=== PATIENT | female | born 1990 | race Two or more races ===

== ENCOUNTER 2021-02-23 07:40 | Emergency (ER) | payer MEDICAID, SELFPAY ==
--- NOTE | 2021-02-23 07:50 | ED_ITS ---
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 Mode of arrival: ambulatory Limitations: no limitations History of Present Illness chief complaint: eye pain Onset (ago): day(s) (yesterday) Onset description: gradual Duration: progressively worsening Location: right eye Eye Symptoms: pain and other (upper lid swelling) Place: home Mechanism: none Severity: mild If Pain, Quality: aching and throbbing Associated symptoms: none Treatments Prior to Arrival: none Related Data Previous Rx's Medication Instructions Recorded cephalexin 500 mg capsule 500 mg PO TID 7 Days #21 cap 02/23/21 erythromycin 5 mg/gram (0.5 %) eye 0.5 inch OPHTHALMIC (EYE) BID 5 02/23/21 ointment Days #3.5 g Allergies Allergy/AdvReac Type Severity Reaction Status Date / Time No Known Allergies Allergy Unverified 03/21/20 19:23 [No Known Allergies*] Review of Systems Review of Systems: Constitutional : No Fever, No Chills, ENT: R upper eyelid swelling, no vision changes Cardiovascular : No Chest Pain, No SOB Respiratory : No Dyspnea Gastrointestinal : No abdominal pain Musculoskeletal : No Joint Swelling Skin : No rash, no skin laceration Neuro : No Weakness, No Numbness PMFSH Past Medical History Medical History No active medical problems Social History Social History (Updated 02/23/21 @ 08:00 by Ignacia Reyes DO) Patient Tobacco Use Status: Never used Tobacco Advance Directives: No Advance Directives Information Provided: No Physical Exam Vital Signs: Appearance: Alert. Oriented X3. No acute distress. Eyes: Pupils equal, round and reactive to light. Upper lid swelling mild erythema on right, EOMi ENT: Pharynx normal. Neck: Normal inspection. Neck supple. CVS: Normal heart rate and rhythm. Pulses normal. Respiratory: No respiratory distress. Breath sounds normal. Abdomen: Soft and no trauma Skin: Skin warm and dry. Normal skin color. Extremities: No lower extremity edema. Neuro: Oriented X 3. No motor deficit. No sensory deficit. MDM - Eye Problem MDM Narrative Medical decision making narrative: 30 yo female healthy no contact lens wear comes in with R upper lid blepharitis, will provide ointment and oral antiboitics, warm compresses, EOMi no concern for deeper space infection. Discharge Plan Discharge Clinical Impression: Blepharitis Qualifiers: Blepharitis type: unspecified type Laterality: right Eyelid: upper Qualified Code(s): H01.001 - Unspecified blepharitis right upper eyelid Patient Disposition: Home, Self-Care Instructions: Blepharitis (ED) Additional Instructions: return to ED for any worsening symptoms or concerns Prescriptions: New cephalexin 500 mg capsule 500 mg PO TID 7 Days Qty: 21 RF: 0 erythromycin 5 mg/gram (0.5 %) ointment 0.5 inch ophthalmic (eye) BID 5 Days Qty: 3.5 RF: 0 Print Language: Moroccan
[2021-02-23 08:01] VITALS: BP 117/81; PULSE 94; RESP 18; TEMP 36.8; O2SAT 98; BMI 32.9
== END 2021-02-23 08:05 | disposition home or self-care (01) ==
PROVIDERS: Emergency Provider Emergency Medicine; PCP Internal Medicine
DX: H01.001 Unspecified blepharitis right upper eyelid (principal); H57.11 Ocular pain, right eye; Z79.899 Other long term (current) drug therapy
CPT/HCPCS: 99283

== ENCOUNTER 2021-07-03 12:13 | Outpatient (REF) | payer MEDICAID, SELFPAY | END 2021-07-03 12:14 | disposition home or self-care (01) | LOC: HO.LAB 12:13 | PROVIDERS: Visit Provider Internal Medicine | DX: Z13.89 Encounter for screening for other disorder (principal) ==

== ENCOUNTER 2021-07-04 08:26 | Outpatient (REF) | payer MEDICAID, SELFPAY ==
[2021-07-04 09:42] LABS: Binax Now Covid-19 Ag Negative (Negative)
[2021-07-04 09:43] LABS: Binax Internal Control QC Valid; Binax Lot number: 9864
== END 2021-07-04 08:27 | disposition home or self-care (01) ==
LOC: HO.LAB 08:26
PROVIDERS: Visit Provider Internal Medicine
DX: Z20.822 Contact with and (suspected) exposure to COVID-19 (principal)
CPT/HCPCS: 36415; C9803

== ENCOUNTER 2021-08-04 08:00 | Emergency (ER) | payer MEDICAID, SELFPAY ==
--- NOTE | ~2021-08-04 | US_ITS ---
EXAMINATION: US ABDOMEN LIMITED CLINICAL INFORMATION: Right upper quadrant pain and tenderness. Gallbladder wall thickening. COMPARISON: None TECHNIQUE: Real-time imaging of the right upper quadrant abdominal viscera. FINDINGS: PANCREAS: The pancreas is partially obscured by overlying gas. However visualized proximal body and head of pancreas is homogeneous in echotexture. LIVER: The liver is normal in size. The liver contour is normal. Parenchymal echogenicity is normal. No focal hepatic lesion. There is no intrahepatic biliary duct dilatation seen. GALLBLADDER: The gallbladder is physiologically distended with echogenic stones but no sludge or pericholecystic fluid collection. The gallbladder wall thickness is 0.6-0.8 cm. COMMON BILE DUCT: Normal in caliber measuring 0.3 cm in diameter. RIGHT KIDNEY: Normal. No hydronephrosis. No renal calculi or focal parenchymal lesions. The kidney measures 10.1 cm in maximum dimension. FREE FLUID: None. US/US abdomen limited IMPRESSION: Gallstone with mild wall thickening. Unremarkable right kidney, CBD and liver.
--- NOTE | ~2021-08-04 | CT_ITS ---
EXAMINATION: CT ABDOMEN AND PELVIS WITH CONTRAST CLINICAL INFORMATION: Right lower quadrant pain COMPARISON: None TECHNIQUE: Multidetector volumetric images were obtained from the superior aspect of the liver through the pubic symphysis following administration 85 mL of Omnipaque 350 intravenous contrast. Sagittal and coronal reformatted images were obtained on the technologist's workstation. Oral contrast: No This CT examination was performed using dose optimization techniques as appropriate, variously including the following: *Automated exposure control *Adjustment of mA and/or kV according to patient size (this includes techniques or standardized protocols for targeted exams where dose is matched to indication/reason for exam; i.e. extremities or head) *Use of iterative reconstruction technique DLP: 769 mGy-cm FINDINGS: LUNG BASES: The lung bases are clear. The heart size is normal. LIVER, GALLBLADDER, AND BILIARY TREE: The liver is normal in size, shape, and attenuation. No focal hepatic lesion or biliary ductal dilatation is present. The gallbladder is nondistended with mild wall thickening but no radiopaque calculi seen. The common bile duct appears normal caliber. PANCREAS: Unremarkable. SPLEEN: Unremarkable. ADRENAL GLANDS: Unremarkable. KIDNEYS AND URETERS: The kidneys are normal in size, shape, and attenuation. No hydronephrosis, hydroureter, or calculi seen. No perinephric stranding. BLADDER: Unremarkable. GASTROINTESTINAL TRACT: There is scattered stool and gas seen throughout the colon without significant distention. The small bowel loops are normal caliber. Appendix is normal caliber. ABDOMINAL WALL: There is a small umbilical hernia containing fat. LYMPH NODES: Normal. VASCULAR: Unremarkable. PELVIC VISCERA: The uterus is midline and appears unremarkable. No free fluid seen. There are scattered phleboliths in the pelvis. OSSEOUS STRUCTURES: No lytic or sclerotic process seen. CT/CT abdomen pelvis w con IMPRESSION: No acute intra-abdominal process seen. Mild constipation. Normal appendix Small lumbar canal hernia containing fat. Fleischner guidelines were followed.
[2021-08-04 08:03] VITALS: BP 121/87; PULSE 82; RESP 18; TEMP 36.6; O2SAT 100; BMI 32.9
[2021-08-04 08:23] LABS: Hematocrit 36.3 % (37.0-47.0); Hemoglobin 11.7 g/dl (12.0-16.0); Mean Corpuscular HGB Conc 32.2 g/dl (31.0-35.0); Mean Corpuscular Hemoglobin 27.3 pg (27.0-33.0); Mean Corpuscular Volume 84.8 fL (80.0-98.0); Mean Platelet Volume 11.6 fL (9.4-12.3); Platelet Count 241 X10*3/uL (160-400); Red Blood Count 4.28 X10*6/uL (4.20-5.50); Red Cell Distribution Width 12.6 % (11.0-16.0); White Blood Count 4.6 X10*3/uL (4.8-10.8)
[2021-08-04 08:35] VITALS: BP 110/69; PULSE 80; RESP 14; TEMP 36.9; O2SAT 99
[2021-08-04 08:35] LABS: Anion Gap 10 (12-20); Blood Urea Nitrogen 12 mg/dL (9-16); Calcium 9.6 mg/dL (8.4-10.2); Carbon Dioxide 24 mmol/L (22-29); Chloride 108 mmol/L (96-108); Creatinine Clr Calc Pharmacy 100.8; Estimated Glomerular Filt Rate > 60; Glucose Random 101 mg/dL (60-115); Lipase 49 U/L (8-78); Potassium 4.9 mmol/L (3.3-5.1); Sodium 137 mmol/L (135-145)
[2021-08-04 08:39] LABS: COVID-19 Test Negative (Negative)
[2021-08-04 09:03] LABS: Alanine Aminotransferase 28 U/L (0-31); Albumin Level 4.2 g/dL (3.5-5.0); Alkaline Phosphatase 66 U/L (39-117); Aspartate Amino Transferase 25 U/L (5-31); Bilirubin Direct < 0.2 mg/dL (0.0-0.5); Bilirubin Total 0.3 mg/dL (0.0-1.0)
[2021-08-04 09:09] LABS: HCG Quantitative < 2 mIU/mL
--- NOTE | 2021-08-04 09:28 | ED_ITS ---
HPI - Abdominal Pain General Chief Complaint: Abdominal Pain Stated Complaint: Abd pain Time Seen by Provider: 08/04/21 08:10 Source: patient Mode of arrival: ambulatory Limitations: no limitations History of Present Illness HPI narrative: 30-year-old female who presents emergency department for evaluation of abdo damion pain. The patient states that she had sudden onset of abdominal pain on Wednesday morning at around 3:00 a.m. ( 08/02/2021, 3 days prior to evaluation). She states the pain woke her from sleep. She points to her epigastric area when she is asked to localize the pain. The pain has been a constant, sharp pain which does radiate to her back. She states the pain waxes and wanes in intensity. The pain is 10/10 at its worst. The pain is worse if she lies down flat or she eats. she had associated nausea but no vomiting. She states that the pain is now radiating to her right flank area. This is a 1st episode of this type of pain. Her last menstrual period was 1 week prior and she states that only lasted 2 days which is unusual for her and she states the blood was darker than usual. At the time my evaluation she states that her pain is 10/10. Related Data Previous Rx's Medication Instructions Recorded cephalexin 500 mg capsule 500 mg PO TID 7 Days #21 cap 02/23/21 erythromycin 5 mg/gram (0.5 %) eye 0.5 inch OPHTHALMIC (EYE) BID 5 02/23/21 ointment Days #3.5 g morphine 15 mg immediate release 15 mg PO Q4-6H PRN #10 tab 08/04/21 tablet omeprazole 20 mg capsule,delayed 20 mg PO DAILY 30 Days #30 cap 08/04/21 release ondansetron 4 mg disintegrating 4 mg PO Q6-8H PRN #14 tab 08/04/21 tablet Allergies Allergy/AdvReac Type Severity Reaction Status Date / Time No Known Allergies Allergy Unverified 03/21/20 19:23 [No Known Allergies*] Review of Systems Review of Systems Yes all other systems are reviewed and are negative Physical Exam Verdana 4l Vital Signs: Verdana 4d Verdana 4d Vital Signs: Verdana 4d Verdana 4Bd Last Vital Signs Verdana 4d Behavioral Scientist New 4d Behavioral Scientist New 4d Temp 98.3 F 08/04/21 10:54 Behavioral Scientist New 4d Pulse 73 08/04/21 10:54 Behavioral Scientist New 4d Resp 16 08/04/21 10:54 BP 124/81 08/04/21 10:54 Pulse Ox 100 08/04/21 10:54 BMI result Body Mass Index 32.9 Const: General: cooperative and no acute distress Orientation/consciousness: oriented to person and oriented to place Limitations: no limitations HENMT: Head: Yes normal to inspection, Yes normocephalic and Yes atraumatic Ears: external ears normal General nose exam: Normal external nose present Face and sinus: Yes normal facial exam Mouth: Normal oral and palatal mucosa present Throat: Yes posterior oropharynx normal Eyes: General: appearance normal, both eyes and all related structures Pupils: Equal, round and reactive pupils present Neck: Neck: Yes normal visual inspection, Yes no lymphadenopathy, Yes trachea midline and Yes supple Chest: Chest palpation & inspection: normal inspection of the chest and normal palpation of entire chest wall Resp: Effort & Inspection: normal respiratory effort and able to speak in complete sentences Auscultation: clear to auscultation bilaterally Cardio: Rate: regular rate Rhythm: regular rhythm Heart sounds: S1 normal heart sound present, S2 normal heart sound present and no murmurs GI: Inspection: Yes normal to inspection Palpation (GI): Soft to palpation, Tenderness to palpation present (GI) in the epigastrum ( mild), in the RLQ ( moderate), in the RUQ ( moderate to severe), suprapubicly ( mild) and Holloway's sign positive and no guarding Auscultation: normal bowel sounds : General: Yes no CVA tenderness Back/Spine/Pelvis: Back: no CVA tenderness Skin: General skin exam: no rashes or lesions noted Neuro: General: oriented to person and oriented to place Cranial nerves: Yes CN's II-XII intact bilaterally and Yes Equal, round and reactive pupils present Cognition (Neuro): normal cognition Motor exam (neuro): 5/5 motor strength present throughout Extrem: General: Yes normal to inspection Psych: Appearance: grossly normal Speech and movement: Normal speech and movement present Affect: normal affect Attitude: cooperative Thought process: Normal thought process present Thought content: Normal thought content present Course Course Course Narrative: 30-year-old female who presents emergency department for evaluation of abdominal pain which began suddenly at 3:00 a.m. 3 days prior, has been constant but waxing waning in intensity. The pain was initially located in the epigastric area Radiating to the back and is now migrated to the right upper quadrant and right flank. pain is worse with lying down flat and with eating. Initial vital signs were normal. Examination did reveal epigastric, right upper quadrant, right lower quadrant and suprapubic tenderness. Patient does have a positive Holloway sign. Differential includes but is not limited to gastritis, biliary disease/gallstones, pancreatitis, appendicitis, diverticulitis. Laboratory evaluation was ordered. Patient was ordered to get Toradol 15 mg IV and Zofran 4 mg IV. She was also given a L of normal saline IV. 1139: The patient's pain improved from 10/10 to 6/10. Her nausea resolved. She still has right upper quadrant tenderness as well as lower abdominal tenderness. Patient's laboratory evaluation was unremarkable Including normal LFTs, lipase and urinalysis. CT scan of the abdomen pelvis not reveal any inflammatory changes around the liver, No distended gallbladder and the common bile duct looks normal. There was mild thickening of the gallbladder wall. I will order ultrasound to further evaluate the patient for gallstones versus cholecystitis. patient will also be given morphine 4 mg IV for her pain. 1406: Patient improved after the above treatment. Ultrasound did reveal mild gallbladder wall thickening with gallstones. I did discuss this finding with the patient. The patient will be discharged home with printed and verbal instructions. She was started on Prilosec 20 mg once a day, Zofran ODT 4 mg every 6-8 hours, Tylenol, ibuprofen and morphine for pain not relieved by these 2 medications. The patient will need to follow-up with our on-call surgeon for re-evaluation within 1 week. MDM - Abdominal Pain Lab Data Result diagrams: 08/04/21 08:15 08/04/21 08:15 Labs: Lab Results 08/04/21 08/04/21 08/04/21 Range/Units 08:15 08:15 08:15 WBC 4.6 L (4.8-10.8) X10*3/uL RBC 4.28 (4.20-5.50) X10*6/uL Hgb 11.7 L (12.0-16.0) g/dl Hct 36.3 L (37.0-47.0) % MCV 84.8 (80.0-98.0) fL MCH 27.3 (27.0-33.0) pg MCHC 32.2 (31.0-35.0) g/dl RDW 12.6 (11.0-16.0) % Plt Count 241 (160-400) X10*3/uL MPV 11.6 (9.4-12.3) fL Absolute Nucleated RBC 0.000 (0.0-0.012) X10*3/uL Nucleated RBC % (auto) 0.0 (0.0-0.2) /100WBC Sodium 137 (135-145) mmol/L Potassium 4.9 (3.3-5.1) mmol/L Chloride 108 (96-108) mmol/L Carbon Dioxide 24 (22-29) mmol/L Anion Gap 10 L (12-20) BUN 12 (9-16) mg/dL Creatinine 0.80 (0.5-1.4) mg/dL Estim Creat Clear Calc 100.8 Estimated GFR > 60 Random Glucose 101 (60-115) mg/dL Calcium 9.6 (8.4-10.2) mg/dL Total Bilirubin 0.3 (0.0-1.0) mg/dL Direct Bilirubin < 0.2 (0.0-0.5) mg/dL AST 25 (5-31) U/L ALT 28 (0-31) U/L Alkaline Phosphatase 66 (39-117) U/L Total Protein 7.0 (6.5-8.0) g/dL Albumin 4.2 (3.5-5.0) g/dL Lipase 49 (8-78) U/L Beta HCG, Quant < 2 mIU/mL Urine Color Urine Appearance Urine pH (5.0-8.0) Ur Specific Fenton (1.005-1.025) Urine Protein (NEG-TRACE) MG/DL Urine Glucose (UA) (NEG) MG/DL Urine Ketones (NEG) MG/DL Urine Blood (NEG) Urine Nitrite (NEG) Ur Leukocyte Esterase (NEG) Urine RBC (0) /HPF Urine WBC (0-4) /HPF Ur Squamous Epith Cells /LPF Urine Bacteria /LPF COVID-19 ([facility]) Negative (Negative) COVID-19 Clin Com See Note 01/31/22 Range/Units 11:05 WBC (4.8-10.8) X10*3/uL RBC (4.20-5.50) X10*6/uL Hgb (12.0-16.0) g/dl Hct (37.0-47.0) % MCV (80.0-98.0) fL MCH (27.0-33.0) pg MCHC (31.0-35.0) g/dl RDW (11.0-16.0) % Plt Count (160-400) X10*3/uL MPV (9.4-12.3) fL Absolute Nucleated RBC (0.0-0.012) X10*3/uL Nucleated RBC % (auto) (0.0-0.2) /100WBC Sodium (135-145) mmol/L Potassium (3.3-5.1) mmol/L Chloride (96-108) mmol/L Carbon Dioxide (22-29) mmol/L Anion Gap (12-20) BUN (9-16) mg/dL Creatinine (0.5-1.4) mg/dL Estim Creat Clear Calc Estimated GFR Random Glucose (60-115) mg/dL Calcium (8.4-10.2) mg/dL Total Bilirubin (0.0-1.0) mg/dL Direct Bilirubin (0.0-0.5) mg/dL AST (5-31) U/L ALT (0-31) U/L Alkaline Phosphatase (39-117) U/L Total Protein (6.5-8.0) g/dL Albumin (3.5-5.0) g/dL Lipase (8-78) U/L Beta HCG, Quant mIU/mL Urine Color STRAW Urine Appearance CLEAR Urine pH 5.5 (5.0-8.0) Ur Specific Fenton 1.020 (1.005-1.025) Urine Protein NEG (NEG-TRACE) MG/DL Urine Glucose (UA) NEG (NEG) MG/DL Urine Ketones NEG (NEG) MG/DL Urine Blood 2+ H (NEG) Urine Nitrite NEG (NEG) Ur Leukocyte Esterase NEG (NEG) Urine RBC 5-9 H (0) /HPF Urine WBC 0 (0-4) /HPF Ur Squamous Epith Cells 4+ /LPF Urine Bacteria 1+ /LPF COVID-19 ([facility]) (Negative) COVID-19 Clin Com ECG Data Attestation: I personally reviewed and interpreted this ECG as follows: Interpretation: 1032: Normal sinus rhythm with a rate of 72, normal NC interval QRS duration QTC interval, inverted T-wave in lead 3 and V1, Q-wave in V1, no ST segment elevation, no ST segment depression, no NC interval depression, no PACs, no PVCs, this is a normal EKG. Discharge Plan Discharge Clinical Impression: Biliary colic, Gallstone Patient Disposition: Home, Self-Care Instructions: Biliary Colic (ED), Gallstones (ED), Low Fat Diet (ED) Additional Instructions: Your blood work was unremarkable. The CT scan of your abdomen pelvis reveals some mild thickening of the gallbladder wall, otherwise was unremarkable. Ultrasound of your abdomen revealed gallstones and some slight thickening of the gallbladder wall suggesting that you have inflammation of the gallbladder most likely caused by your gallstones. You will need to follow-up with the on-call surgeon to determine if the gallstones with the cause of your pain and if you need surgery to remove your gallbladder. Take ibuprofen 200 mg pills, 3 pills every 6 hours as needed for pain. Take Tylenol (acetaminophen) 500 mg pills, 2 pills every 4-6 hours as needed for pain. For pain not relieved by ibuprofen or Tylenol take morphine 15 mg pills, 1 pill every 4 hours as needed for pain. Do not drive or work while taking this medication since they can cause sleepiness. Morphine is a narcotic medication that can be addicting. If you are concerned about addiction you can ask the pharmacist for less pills or do not get this prescription filled. Take Zofran ODT 4 mg pills, 1 pill dissolved in your mouth every 8 hours as needed for nausea and vomiting. Take Prilosec (omeprazole) 20 mg pills, 1 pill once a day for 1 month. This medication shuts off your acid production and let us the inflammation in your esophagus and stomach heal if inflammation of the structures is the cause of your pain. Follow-up with our on-call general surgeon, Dr. Anaya. Please return to the emergency department if your symptoms get worse or if you develop any symptoms that are concerning to you. Prescriptions: New omeprazole 20 mg capsule,delayed release(DR/EC) 20 mg PO DAILY 30 Days Qty: 30 0RF morphine 15 mg tablet 15 mg PO Q4-6H PRN (Reason: pain) Qty: 10 0RF Rx Instructions: The patient may ask for partial fill ondansetron 4 mg tablet,disintegrating 4 mg PO Q6-8H PRN (Reason: nausea and vomiting) Qty: 14 0RF No Action cephalexin 500 mg capsule 500 mg PO TID 7 Days Qty: 21 0RF erythromycin 5 mg/gram (0.5 %) ointment 0.5 inch ophthalmic (eye) BID 5 Days Qty: 3.5 0RF Referrals: Andrey Anaya MD [Physician] - 1 week Print Language: Tuvaluan [facility] Past Medical History [facility] Narrative: Past medical history: None. Past surgical history: x2 with the last surgery being 13 years prior. Social history: She denies tobacco, alcohol and drug use. Medical History No active medical problems Social History Social History (Updated 02/23/21 @ 08:00 by Ignacia Reyes DO) Alcohol intake: never Patient Tobacco Use Status: Never used Tobacco Use of substances other than those prescribed or required for medical reasons: No Advance Directives: No Advance Directives Information Provided: No Patient : No
--- NOTE | 2021-08-04 09:30 | ECG_ITS ---
Test Reason : ABDOMEN PAIN Blood Pressure : / mmHG Vent. Rate : 072 BPM Atrial Rate : 072 BPM P-R Int : 160 ms QRS Dur : 082 ms QT Int : 388 ms P-R-T Axes : 046 -08 007 degrees QTc Int : 424 ms Normal sinus rhythm Normal ECG No previous ECGs available Referred By: Paulino Flannery Electronically Signed By:JOSE PERERA
[2021-08-04] MEDS: iohexoL 350 MG/ML 100 ML INFUS..BTL IV (10:34)
[2021-08-04 10:54] VITALS: BP 124/81; PULSE 73; RESP 16; TEMP 36.8; O2SAT 100
[2021-08-04] MEDS: 0.9 % Sodium Chloride 1,000 ML 999 ML IV (10:59)
[2021-08-04] MEDS: ondansetron HCL 4 MG/2 ML VIAL IVPUSH (11:01)
[2021-08-04] MEDS: Ketorolac Tromethamine 30 MG/ML VIAL 15 MG IVPUSH (11:01)
[2021-08-04 11:15] LABS: Appearance Urine CLEAR; Color Urine STRAW; Glucose Urine UA NEG (NEG); Leukocyte Esterase Urine NEG (NEG); Nitrite Urine NEG (NEG); PH 5.5 (5.0-8.0); UACC Culture Trigger NO; Urine Blood 2+ (NEG); Urine Ketones NEG (NEG); Urine Protein NEG (NEG-TRACE)
[2021-08-04 11:52] LABS: Bacteria Urine 1+ /LPF; Squamous Epithelial Cell Urine 4+ /LPF; WBC Urine 0 /HPF (0-4)
[2021-08-04] MEDS: Morphine Sulfate 4 MG/ML CARTRIDGE IVPUSH (11:59)
[2021-08-04 14:34] VITALS: BP 120/84; PULSE 86; RESP 17; O2SAT 100
== END 2021-08-04 14:45 | disposition home or self-care (01) ==
PROVIDERS: Emergency Provider Emergency Medicine Emergency Medical Services; PCP Internal Medicine
DX: K80.70 Calculus of gallbladder and bile duct without cholecystitis without obstruction (principal); Z20.822 Contact with and (suspected) exposure to COVID-19; R11.0 Nausea
CPT/HCPCS: 74177; 76705; 80048; 80076; 81001; 83690; 84702; 85027; 87635; 93005; 96361; 96374; 96375; 99284; 99285; J1885; J2270; J2405; Q9967

== ENCOUNTER → 2021-08-06 08:18 | Outpatient (BNVA) | payer MEDICAID, SELFPAY | PROVIDERS: PCP Internal Medicine; Referring Provider Internal Medicine; Visit Provider Surgery | DX: K80.20 Calculus of gallbladder without cholecystitis without obstruction (principal) | CPT/HCPCS: 99202 ==

== ENCOUNTER 2021-08-15 10:30 | Day surgery (SDC) | payer MEDICAID, SELFPAY ==
--- NOTE | 2021-08-14 10:21 | HO.ANESPROP2 ---
Documented by User: Aura Barragan NP 08/14/21 10:22 HPI - Anesthesia Eval Consult details Narrative: 30yo F for Cholecystectomy Laparoscopic PMFSH Active Problems Active Problems: All Active Problems (Updated 08/06/21 @ 09:11 by Andrey Anaya MD) Gallstones (Acute) Past Medical History Medical History (Updated 08/06/21 @ 09:11 by Andrey Anaya MD) Gallstones No active medical problems Surgical History Surgical History (Updated 08/15/21 @ 10:50 by Rhiannon Almaraz) History of 2 sections Tubal ligation status Social History Social History Alcohol intake: never Patient Tobacco Use Status: Never used Tobacco Use of substances other than those prescribed or required for medical reasons: No Are you DNR?: No Advance Directives: No Advance Directives Information Provided: Yes Meds Allergies Allergy/AdvReac Type Severity Reaction Status Date / Time No Known Allergies Allergy Verified 08/15/21 10:49 [No Known Allergies*] Home Medications Medication Instructions Recorded Confirmed Last Taken Type ibuprofen 800 mg tablet 800 mg PO Q6H PRN 08/06/21 08/06/21 08/13/21 History Exam Exam Date and Time: August 14, 2021 102 Pertinent Lab Results Pertinent Lab Results: Laboratory Tests 08/04/21 08/04/21 08:15 08:15 WBC 4.6 L Hgb 11.7 L Hct 36.3 L Plt Count 241 Sodium 137 Potassium 4.9 Chloride 108 Carbon Dioxide 24 BUN 12 Creatinine 0.80 Assessment and Plan Assessment Anesthesia Assessment: Chart Reviewed Documented by User: Dafne Dangelo MD 08/15/21 13:46 PMFSH Past Medical History Medical History (Updated 08/06/21 @ 09:11 by Andrey Anaya MD) Gallstones No active medical problems Family History Family history of problems with anesthesia: No Surgical History Surgical History (Updated 08/15/21 @ 10:50 by Rhiannon Almaraz) History of 2 sections Tubal ligation status History of Problems with Anesthesia: No Social History Social History Alcohol intake: never Patient Tobacco Use Status: Never used Tobacco Use of substances other than those prescribed or required for medical reasons: No Are you DNR?: No Advance Directives: No Advance Directives Information Provided: Yes Meds Allergies Allergy/AdvReac Type Severity Reaction Status Date / Time No Known Allergies Allergy Verified 08/15/21 10:49 [No Known Allergies*] Home Medications Medication Instructions Recorded Confirmed Last Taken Type ibuprofen 800 mg tablet 800 mg PO Q6H PRN 08/06/21 08/06/21 08/13/21 History Exam Airway Mallampati Class: II TM Dist: >3cm Neck ROM: Full Heart: rrr Lungs: cta Assessment and Plan Assessment Anesthesia Assessment: Anesthesia Plan Discussed and Chart Reviewed Final Anesthetic Review Family History of Problems with Anesthesia: No History of Problems with Anesthesia: No NPO: Yes ASA Class: I Final Preanesthetic Review: No Changes in Pt Med Stat, Meds/Allgs Chart Reviewed and Consent Obtained/Reviewed Patient Risk: Intermediate Procedure Risk: Intermediate Anesthetic Plan Anesthetic Plan: GA Disposition: Standard PACU
[2021-08-15] VITALS (14 sets, daily range): BP systolic 98–139; BP diastolic 51–81; PULSE 64–96; RESP 10–18; TEMP 36.3–36.9; O2SAT 96–100; BMI 32.7
[2021-08-15] MEDS: Acetaminophen 325 MG TABLET 650 MG PO (11:14)
[2021-08-15] MEDS: Lactated Ringers 1,000 ML 100 ML IVCONT (11:20)
--- NOTE | 2021-08-15 15:06 | P.OP_ITS ---
Operative Note Operative Note Date of Service: 08/15/21 Narrative: Preop diagnosis: Symptomatic gallstones Postop diagnosis: The same Procedure: Laparoscopic cholecystectomy Surgeon: Andrey Anaya MD business banking sales assistant: XAVIER Melgar The patient is a 30 year female who has had periodic right upper quadrant pain, with note of gallstones on ultrasound and CAT scan. She therefore wanted to proceed with cholecystectomy in view of her symptoms. She understood the technique of laparoscopic cholecystectomy and possible open. She was aware of the risks, benefits, and alternatives. She was brought to the operating room placed supine the table under general anesthesia via endotracheal tube. The abdomen is prepped draped usual sterile fashion. A surgical time-out was done. The patient received Cefotan 2 g IV preoperatively . I made a short supraumbilical incision using blade 15. This was carried down Through the full-thickness skin subcutaneous fat down to the fascia. The fascia was incised. The peritoneum was entered. Through this incision a Nile port introduced. Pneumoperitoneum was introduced to a pressure of 15 minutes hg. From here on the rest of the procedures done under vision with the laparoscopic. With laparoscopic visualization, I proceeded to then insert a 5/12 mm port in the epigastric area below the subcostal margin. 5 mm port introduced a small incision below the subcostal margin along the internal and the midclavicular carlos e. Graspers were placed through these working ports. The patient was placed in head-up and [id number] position. The gallbladder was seen and was able to apply a grasper the fundus. The gallbladder was retracted cephalad. This did not appear inflamed. I was able to apply another grasper towards the parts of the gallbladder and this was used to retract the gallbladder laterally. At this point therefore the gallbladder was being retracted in a cephalad and L fashion to put the area of the cystic duct on stretch. We carefully dissected the neck of the gallbladder towards the cystic duct using the [place] dissector and until was able to clearly influence of the cystic duct with the neck of the gallbladder. By doing so were able to achieve a critical view of the patent cystic triangle. I was also able to clearly see the cystic artery. With the cystic duct well defined, proceeded to apply clips with 2 clips along distally and the cystic duct was transected between clips with Endo scissors. Clips were applied on the cystic artery as well with 2 clips applied distally and the cystic artery was transected between clips. with traction the gallbladder wall away from the liver bed, I proceeded to then divide across the hilum with electrocautery spatula and incised the peritoneum of the gallbladder with this spatula. I then proceeded to carefully define a plane of dissection between the gallbladder wall the liver bed along this incision, carefully the gallbladder along this well-defined plane. We continued to separate the gallbladder using a combination of electrocautery as well as blunt dissection with the tip of the spatula. The gallbladder was eventually completely and was retrieved through an endobag through the umbilical incision I reinserted all ports and re-insufflated. Examined the subhepatic space. There was no evidence of any bile leak or any bowel injury. There is any no evidence of any bleeding I observed for 4 quadrants and there was no other pathology seen. Once hemostasis was confirmed, I proceeded to desufflate through the port sites. I then proceeded to remove all ports under vision with laparoscopic. The umbilical port was removed last. The fascia of the umbilical incision was closed with [id number] Dexon 0 stitch. Skin closure was achieved on all incisions using Dexon 4-0 subcuticular sutures. Steri-Strips and dressings were applied . The patient tolerated the procedure well. There were no complications noted. Initial fine counts of sponges and instruments were correct. Estimated blood loss was about 20 cc . The patient was extubated without difficulty and transferred to the recovery room with stable vital signs.
[2021-08-15] MEDS: fentaNYL citrate/PF 100 MCG/2 ML VIAL 50 MCG IVPUSH ×4 (15:15→15:45)
[2021-08-15] MEDS: oxyCODONE HCl Immed Release 5 MG TABLET PO ×2 (15:15→16:55)
[2021-08-15] MEDS: HYDROmorphone HCl 0.5 MG/0.5 ML SYRINGE 0.25 MG IVPUSH ×2 (16:55→17:00)
== END 2021-08-15 17:49 | disposition home or self-care (01) ==
PROVIDERS: PCP Internal Medicine; Visit Provider Surgery
PROC: 0FT44ZZ Resection of Gallbladder, Percutaneous Endoscopic Approach (ICD-10-PCS; CPT 47562; principal; 2021-08-15 12:20)
DX: K80.10 Calculus of gallbladder with chronic cholecystitis without obstruction (principal); Z79.899 Other long term (current) drug therapy
CPT/HCPCS: 47562; 88304; J1100; J1170; J2250; J2405; J3010

== ENCOUNTER → 2021-08-28 09:14 | Outpatient (BNVA) | payer MEDICAID, SELFPAY | PROVIDERS: PCP Internal Medicine; Referring Provider Internal Medicine; Visit Provider Surgery | DX: Z09 Encounter for follow-up examination after completed treatment for conditions other than malignant neoplasm (principal); Z87.19 Personal history of other diseases of the digestive system; Z90.49 Acquired absence of other specified parts of digestive tract | CPT/HCPCS: 99212 ==

== ENCOUNTER 2022-01-23 05:57 | Emergency (ER) | payer MEDICAID, SELFPAY ==
--- NOTE | ~2022-01-23 | CT_ITS ---
EXAMINATION: CT ABDOMEN AND PELVIS WITHOUT CONTRAST CLINICAL INFORMATION: Right flank pain. Right lower quadrant pain. Rule out stone COMPARISON: 08/04/2021. TECHNIQUE: Multidetector volumetric imaging was performed from the superior aspect of the liver through the pubic symphysis. Sagittal and coronal reformatted images were obtained on the technologist's workstation. This CT examination was performed using dose optimization techniques as appropriate, variously including the following: *Automated exposure control *Adjustment of mA and/or kV according to patient size (this includes techniques or standardized protocols for targeted exams where dose is matched to indication/reason for exam; i.e. extremities or head) *Use of iterative reconstruction technique DLP: 603 mGy-cm FINDINGS: LUNG BASES: The visualized lung bases are unremarkable. LIVER, GALLBLADDER, AND BILIARY TREE: The liver is normal in size, shape, and attenuation. No focal hepatic lesion or biliary ductal dilatation is present. Status post cholecystectomy. PANCREAS: Unremarkable. SPLEEN: Unremarkable. ADRENAL GLANDS: Unremarkable. KIDNEYS AND URETERS: The kidneys are normal in size, shape, and attenuation. No hydronephrosis, hydroureter, or calculi seen. No perinephric stranding. BLADDER: Unremarkable. GASTROINTESTINAL TRACT: The small and large bowel are unremarkable. The appendix is unremarkable. ABDOMINAL WALL: No significant hernia is appreciated. LYMPH NODES: Normal. VASCULAR: Unremarkable. PELVIC VISCERA: Uterus is diffusely prominent. No discrete leiomyomata seen however. No adnexal mass. OSSEOUS STRUCTURES: Unremarkable. CT/CT abdomen pelvis wo con IMPRESSION: No acute CT findings. Fleischner guidelines were followed.
[2022-01-23 06:21] VITALS: BP 117/77; PULSE 80; RESP 18; TEMP 37.1; O2SAT 99; BMI 33.0
[2022-01-23 08:39] LABS: Appearance Urine HAZY; Color Urine STRAW; Glucose Urine UA NEG (NEG); Leukocyte Esterase Urine NEG (NEG); Nitrite Urine NEG (NEG); PH 5.5 (5.0-8.0); Urine Blood NEG (NEG); Urine Ketones NEG (NEG); Urine Protein NEG (NEG-TRACE)
[2022-01-23 08:40] LABS: UPreg QC Valid YES; Urine Pregnancy NEGATIVE (NEGATIVE)
[2022-01-23 08:42] LABS: MANUAL DIFF FLAG NO
[2022-01-23 08:43] LABS: Basophils Percent Auto 0.5 % (0-2); Eosinophils Percent Auto 0.7 % (0-4); Hematocrit 40.3 % (37.0-47.0); Imm Gran Abs Auto 0.01 X10*3/uL (0.00-0.03); Imm Gran Pct Auto 0.2 % (0.0-0.4); Lymphocytes Absolute Auto 1.8 X10*3/uL (1.2-4.9); Lymphocytes Percent Auto 29.4 % (20-40); Mean Corpuscular HGB Conc 32.3 g/dl (31.0-35.0); Mean Corpuscular Volume 83.8 fL (80.0-98.0); Mean Platelet Volume 11.6 fL (9.4-12.3); Monocytes Absolute Auto 0.3 X10*3/uL (0.1-1.2); Monocytes Percent Auto 5.3 % (2-11); Neutrophils Absolute Auto 3.8 x10*3/uL (2.0-8.3); Neutrophils Percent Auto 63.9 % (45-73); Platelet Count 273 X10*3/uL (160-400); Red Blood Count 4.81 X10*6/uL (4.20-5.50)
[2022-01-23] MEDS: 0.9 % Sodium Chloride 1,000 ML 999 ML IV (08:44)
[2022-01-23] MEDS: Ketorolac Tromethamine 15 MG/ML VIAL IVPUSH (08:44)
[2022-01-23] MEDS: ondansetron HCL 4 MG/2 ML VIAL IVPUSH (08:44)
[2022-01-23 09:00] LABS: Alanine Aminotransferase 30 U/L (0-31); Albumin Level 4.8 g/dL (3.5-5.0); Alkaline Phosphatase 81 U/L (39-117); Anion Gap 11 (12-20); Aspartate Amino Transferase 27 U/L (5-31); Bilirubin Total 0.4 mg/dL (0.0-1.0); Blood Urea Nitrogen 10 mg/dL (9-16); Calcium 9.5 mg/dL (8.4-10.2); Carbon Dioxide 25 mmol/L (22-29); Chloride 105 mmol/L (96-108); Creatinine Clr Calc Pharmacy 101.3; Estimated Glomerular Filt Rate > 60; Glucose Random 88 mg/dL (60-115); Lipase 45 U/L (8-78); Potassium 3.9 mmol/L (3.3-5.1); Sodium 137 mmol/L (135-145); Total Protein 7.8 g/dL (6.5-8.0)
--- NOTE | 2022-01-23 11:29 | ED.BACK ---
HPI - Back Pain/Injury General Chief Complaint: Back Pain/Injury Stated Complaint: back and rib pain Time Seen by Provider: 01/23/22 07:25 Source: patient Mode of arrival: ambulatory Limitations: no limitations History of Present Illness HPI Narrative: 31-year-old female who presents emergency department for evaluation of right-sided back pain which radiates to her right abdomen. Patient states that she has been having lower back pain on off for approximately 1 week. She states that the pain was mild. She did not have any injury. She states this morning at 01:00 hours she woke up with severe pain in her right lower back. The pain did radiate to her right lower abdomen. Her pain is now a twisting like sensation which is constant but waxes and wanes in intensity. She states the pain is 10/10 at its worst. The patient took Advil dual action (ibuprofen/naproxen) without relief her pain. She states the pain does radiate her right lower abdomen was pain feels like a twisting sensation as well. She states she does have pain in her left thigh but no pain that radiates down her right leg. She has had no numbness or weakness. She denies loss of bowel or bladder control. The patient denied fever, chills, rhinorrhea, sore throat, cough, chest pain. She states she has had some occasional shortness of breath and dyspnea on exertion. She has also noted some dysuria. She denied change in bowel movements. MD elicited complaint: back pain Onset (ago): week(s) (1) Timing: constant Severity: severe Pain scale (0-10): 10 Similar Symptoms Previously: Yes Quality: other (Twisting) Location: lumbar spine Radiation: abdomen (RLQ) Exacerbating factors: movement Relieving factors: none Context: other (No trauma) Associated symptoms: dysuria Work related injury: No Related Data Home Medications Medication Instructions Recorded Confirmed ibuprofen 800 mg tablet 800 mg PO Q6H PRN Pain 08/06/21 08/06/21 Previous Rx's Medication Instructions Recorded morphine 15 mg immediate release 15 mg PO Q4-6H PRN pain #10 tabs 08/04/21 tablet omeprazole 20 mg capsule,delayed 20 mg PO DAILY 30 days #30 caps 08/04/21 release ondansetron 4 mg disintegrating 4 mg PO Q6-8H PRN nausea and 08/04/21 tablet vomiting #14 tabs oxycodone-acetaminophen 5 mg-325 1 tab PO Q4-6H PRN pain, severe 08/15/21 mg tablet (Percocet) #30 tabs cyclobenzaprine 10 mg tablet 10 mg PO TID PRN pain, muscle 01/23/22 spasm #15 tabs Allergies Allergy/AdvReac Type Severity Reaction Status Date / Time No Known Allergies Allergy Verified 01/23/22 06:21 [No Known Allergies*] Review of Systems Review of Systems: Yes all other systems are reviewed and are negative [facility] Past Medical History [facility] Narrative: Social history: She denies tobacco, alcohol and drug use. Medical History Gallstones No active medical problems Surgical History History of 2 sections History of laparoscopic cholecystectomy Tubal ligation status Social History Social History Alcohol intake: never Patient Tobacco Use Status: Never used Tobacco Advance Directives: No Physical Exam Vital Signs: Vital Signs: Last Vital Signs Temp 98.7 F 01/23/22 06:21 Pulse 80 01/23/22 06:21 Resp 18 01/23/22 06:21 BP 117/77 01/23/22 06:21 Pulse Ox 99 01/23/22 06:21 O2 Del Method 01/23/22 06:21 BMI result Body Mass Index 33.0 Const: General: cooperative and no acute distress Orientation/consciousness: oriented to person and oriented to place Limitations: no limitations HEENT: Head: Yes normal to inspection, Yes normocephalic and Yes atraumatic Ears: external ears normal General nose exam: Normal external nose present Face and sinus: Yes normal facial exam Mouth: Normal oral and palatal mucosa present Throat: Yes posterior oropharynx normal Eyes: General: appearance normal, both eyes and all related structures Pupils: Equal, round and reactive pupils present Neck: Neck: Yes normal visual inspection, Yes no lymphadenopathy, Yes trachea midline and Yes supple Chest: Chest palpation & inspection: normal inspection of the chest and normal palpation of entire chest wall Resp: Effort & Inspection: normal respiratory effort and able to speak in complete sentences Auscultation: clear to auscultation bilaterally Cardio: Rate: regular rate Rhythm: regular rhythm Heart sounds: S1 normal heart sound present, S2 normal heart sound present and no murmurs GI: Inspection: Yes normal to inspection Palpation (GI): Soft to palpation, Tenderness to palpation present (GI) in the RLQ (Moderate) and in the RUQ (Moderate) and no guarding Auscultation: normal bowel sounds : General: Yes CVA tenderness bilateral (Mild) Back/Spine/Pelvis: Back: CVA tenderness Thoracic/Lumbar Spine: lumbar spinal tenderness (Right greater than left) at L3, at L4 and at L5 and No straight leg raise positive Skin: General skin exam: no rashes or lesions noted Neuro: General: oriented to person and oriented to place Cranial nerves: Yes CN's II-XII intact bilaterally and Yes Equal, round and reactive pupils present Cognition (Neuro): normal cognition Motor exam (neuro): 5/5 motor strength present throughout Extrem: General: Yes normal to inspection Psych: Appearance: grossly normal Speech and movement: Normal speech and movement present Affect: normal affect Attitude: cooperative Thought process: Normal thought process present Thought content: Normal thought content present Course Course Course Narrative: 31-year-old female who presents emergency department for evaluation of mild lower back pain x1 week with increased pain at 01:00 hours. Pain is complaining of right lower back pain which radiates to her right abdomen. Pain was 10/10. Vital signs were normal. Physical examination did reveal bilateral CVA tenderness, right lumbar paraspinal muscle tenderness greater than left, negative straight leg raise bilaterally, both right upper and right lower quadrant tenderness. Differential includes was not limited to lumbar strain, pancreatitis, urinary tract infection, renal colic. Laboratory evaluation was ordered CT scan of the abdomen pelvis with IV contrast was also ordered. Patient was ordered to get Toradol 15 mg IV , Versed 2 mg IV and Zofran 4 mg IV. Patient was also treated with normal saline x1 L 1100: Patient is feeling better the above treatment patient's CBC, CMP and urinalysis were unremarkable. Urine test was negative your like his was not elevated. CT scan of the abdomen pelvis did not reveal a clear cause for pain. Patient's pain is most likely secondary to lumbar musculoskeletal strain with spasm. Patient was given printed and verbal instructions. She was advised to take her Advil dual action, acetaminophen and was prescribed cyclobenzaprine. MDM - Back Pain/Injury Lab Data Result diagrams: 01/23/22 08:37 01/23/22 08:37 Labs: Lab Results 01/23/22 01/23/22 01/23/22 Range/Units 08:26 08:26 08:37 WBC 6.0 (4.8-10.8) X10*3/uL RBC 4.81 (4.20-5.50) X10*6/uL Hgb 13.0 (12.0-16.0) g/dl Hct 40.3 (37.0-47.0) % MCV 83.8 (80.0-98.0) fL MCH 27.0 (27.0-33.0) pg MCHC 32.3 (31.0-35.0) g/dl RDW 13.0 (11.0-16.0) % Plt Count 273 (160-400) X10*3/uL MPV 11.6 (9.4-12.3) fL Immature Gran % (Auto) 0.2 (0.0-0.4) % Neut % (Auto) 63.9 (45-73) % Lymph % (Auto) 29.4 (20-40) % [place] % (Auto) 5.3 (2-11) % Eos % (Auto) 0.7 (0-4) % Baso % (Auto) 0.5 (0-2) % Lymph # (Auto) 1.8 (1.2-4.9) X10*3/uL [place] # (Auto) 0.3 (0.1-1.2) X10*3/uL Eos # (Auto) 0.0 (0.0-0.4) X10*3/uL Baso # (Auto) 0.0 (0.0-0.2) X10*3/uL Abs Immat Gran (auto) 0.01 (0.00-0.03) X10*3/uL Absolute Neuts (auto) 3.8 (2.0-8.3) x10*3/uL Absolute Nucleated RBC 0.000 (0.0-0.012) X10*3/uL Nucleated RBC % (auto) 0.0 (0.0-0.2) /100WBC Sodium (135-145) mmol/L Potassium (3.3-5.1) mmol/L Chloride (96-108) mmol/L Carbon Dioxide (22-29) mmol/L Anion Gap (12-20) BUN (9-16) mg/dL Creatinine (0.5-1.4) mg/dL Estim Creat Clear Calc Estimated GFR Random Glucose (60-115) mg/dL Calcium (8.4-10.2) mg/dL Total Bilirubin (0.0-1.0) mg/dL AST (5-31) U/L ALT (0-31) U/L Alkaline Phosphatase (39-117) U/L Total Protein (6.5-8.0) g/dL Albumin (3.5-5.0) g/dL Lipase (8-78) U/L Urine Color STRAW Urine Appearance HAZY Urine pH 5.5 (5.0-8.0) Ur Specific [place] 1.010 (1.005-1.025) Urine Protein NEG (NEG-TRACE) MG/DL Urine Glucose (UA) NEG (NEG) MG/DL Urine Ketones NEG (NEG) MG/DL Urine Blood NEG (NEG) Urine Nitrite NEG (NEG) Ur Leukocyte Esterase NEG (NEG) Urine Test NEGATIVE (NEGATIVE) 01/23/22 Range/Units 08:37 WBC (4.8-10.8) X10*3/uL RBC (4.20-5.50) X10*6/uL Hgb (12.0-16.0) g/dl Hct (37.0-47.0) % MCV (80.0-98.0) fL MCH (27.0-33.0) pg MCHC (31.0-35.0) g/dl RDW (11.0-16.0) % Plt Count (160-400) X10*3/uL MPV (9.4-12.3) fL Immature Gran % (Auto) (0.0-0.4) % Neut % (Auto) (45-73) % Lymph % (Auto) (20-40) % [place] % (Auto) (2-11) % Eos % (Auto) (0-4) % Baso % (Auto) (0-2) % Lymph # (Auto) (1.2-4.9) X10*3/uL [place] # (Auto) (0.1-1.2) X10*3/uL Eos # (Auto) (0.0-0.4) X10*3/uL Baso # (Auto) (0.0-0.2) X10*3/uL Abs Immat Gran (auto) (0.00-0.03) X10*3/uL Absolute Neuts (auto) (2.0-8.3) x10*3/uL Absolute Nucleated RBC (0.0-0.012) X10*3/uL Nucleated RBC % (auto) (0.0-0.2) /100WBC Sodium 137 (135-145) mmol/L Potassium 3.9 D (3.3-5.1) mmol/L Chloride 105 (96-108) mmol/L Carbon Dioxide 25 (22-29) mmol/L Anion Gap 11 L (12-20) BUN 10 (9-16) mg/dL Creatinine 0.76 (0.5-1.4) mg/dL Estim Creat Clear Calc 101.3 Estimated GFR > 60 Random Glucose 88 (60-115) mg/dL Calcium 9.5 (8.4-10.2) mg/dL Total Bilirubin 0.4 (0.0-1.0) mg/dL AST 27 (5-31) U/L ALT 30 (0-31) U/L Alkaline Phosphatase 81 D (39-117) U/L Total Protein 7.8 (6.5-8.0) g/dL Albumin 4.8 (3.5-5.0) g/dL Lipase 45 (8-78) U/L Urine Color Urine Appearance Urine pH (5.0-8.0) Ur Specific [place] (1.005-1.025) Urine Protein (NEG-TRACE) MG/DL Urine Glucose (UA) (NEG) MG/DL Urine Ketones (NEG) MG/DL Urine Blood (NEG) Urine Nitrite (NEG) Ur Leukocyte Esterase (NEG) Urine Test (NEGATIVE) Discharge Plan Discharge Clinical Impression: Abdominal pain in female Back pain Qualifiers: Back pain location: low back pain Chronicity: acute Back pain laterality: right Sciatica presence: without sciatica Qualified Code(s): M54.50 - Low back pain, unspecified Patient Disposition: Home, Self-Care Instructions: Acute Low Back Pain (ED) Additional Instructions: Your laboratory evaluation was normal Your urinalysis was normal. The CT scan of your abdomen pelvis was normal and not reveal a cause for your back or abdominal pain Your symptoms are most likely caused by a sprain/strain of the muscles of your right lower back. Take Advil dual action as directed on the package. Take Tylenol (acetaminophen) 500 mg pills, 2 pills every 4 to 6 hours as needed for pain. Take Flexeril (cyclobenzaprine) 10 mg pills, 1 pill every 6-8 hours as needed for pain or spasm. This medication will make you sleepy. Do not drive or work while taking this medication. Apply ice for 15 minutes to the area that hurts on your back, then apply a heating a pad on low for 15 minutes. Do this 4-6 times a day to help reduce the pain in your back. Continue with normal activities as tolerated since staying in bed and not moving around will make your pain worse. You can also try over the counter lidocaine patches as directed on the box to help with the pain. Please return to the Emergency Department or see your doctor immediately if your symptoms get worse or if you develop any new symptoms that are concerning you. Follow up with your doctor in 2 day. Please read the other printed discharge instructions on back pain. Prescriptions: New cyclobenzaprine 10 mg tablet 10 mg PO TID PRN (Reason: pain, muscle spasm) Qty: 15 0RF No Action oxycodone-acetaminophen [Percocet] 5-325 mg tablet 1 tab PO Q4-6H PRN (Reason: pain, severe) Qty: 30 0RF omeprazole 20 mg capsule,delayed release(DR/EC) 20 mg PO DAILY 30 Days Qty: 30 0RF morphine 15 mg tablet 15 mg PO Q4-6H PRN (Reason: pain) Qty: 10 0RF Rx Instructions: The patient may ask for partial fill ondansetron 4 mg tablet,disintegrating 4 mg PO Q6-8H PRN (Reason: nausea and vomiting) Qty: 14 0RF ibuprofen 800 mg tablet 800 mg PO Q6H PRN (Reason: Pain) Interventions: ED Discharge Assessment Last Done: 01/23/22 11:45 Discharge Date/Time: 01/23/22 11:46
== END 2022-01-23 11:46 | disposition home or self-care (01) ==
PROVIDERS: Emergency Provider Emergency Medicine Emergency Medical Services; PCP Internal Medicine
DX: M54.50 Low back pain, unspecified (principal); R10.9 Unspecified abdominal pain
CPT/HCPCS: 36415; 74176; 80053; 81003; 81025; 83690; 85025; 96361; 96374; 96375; 99283; 99284; J1885; J2405

== ENCOUNTER 2022-11-05 15:02 | Emergency (ER) | payer OTHER, SELFPAY ==
--- NOTE | ~2022-11-05 | CT_ITS ---
EXAMINATION: CT HEAD WITHOUT CONTRAST CLINICAL INFORMATION: Severe headaches COMPARISON: 06/24/2017 TECHNIQUE: Contiguous axial imaging was performed from the skull base to vertex without intravenous administration of contrast. This CT examination was performed using dose optimization techniques as appropriate, variously including the following: *Automated exposure control *Adjustment of mA and/or kV according to patient size (this includes techniques or standardized protocols for targeted exams where dose is matched to indication/reason for exam; i.e. extremities or head) *Use of iterative reconstruction technique DLP: 6:15 mGy-cm FINDINGS: No intra or extra-axial fluid collection, hemorrhage, mass, mass effect. Calvarium intact. CT/CT head/brain wo IV con IMPRESSION: No acute intracranial pathology.
--- NOTE | 2022-11-05 15:24 | ED_ITS ---
HPI - General Adult General Chief complaint: Headache <XAVIER Leslie - Last Filed: 11/05/22 15:29> Stated complaint: severe headache <XAVIER Leslie - Last Filed: 11/05/22 15:29> Time Seen by Provider: 11/05/22 18:00 <XAVIER Leslie - Last Filed: 11/05/22 15:29> Source: patient, RN notes reviewed, old records reviewed and science interpreter <Oswald Villanueva - Last Filed: 11/05/22 19:40> Mode of arrival: ambulatory <Oswald Villanueva - Last Filed: 11/05/22 19:40> Limitations: language barrier <Oswald Villanueva - Last Filed: 11/05/22 19:40> History of Present Illness HPI narrative: 31-year-old primarily Israeli-speaking female with past medical history significant for headaches presents for evaluation of a headache patient reports that her headache started yesterday and was worse when she woke up this morning. she reports pressure to the back of her head. Denies any trauma to the head or neck. She states that she has associated light sensitivity and dizziness as well as nausea she describes her pain as 10/10 denies any weakness, difficulty speaking or difficulty walking. She took 2 Excedrin at 9:00 a.m. this morning and 2 more at 11:00 a.m. this morning without improvement in her symptoms she reports that she then took an Excedrin at 1:30 p.m. and then presented here for further evaluation patient was medicated with Toradol, Benadryl and Reglan in triage <Oswald Villanueva - Last Filed: 11/05/22 19:40> Related Data Home medications: Home Medications Medication Instructions Recorded Confirmed ibuprofen 800 mg tablet 800 mg PO Q6H PRN Pain 08/06/21 08/06/21 Previous Rx's Medication Instructions Recorded morphine 15 mg immediate release 15 mg PO Q4-6H PRN pain #10 tabs 08/04/21 tablet omeprazole 20 mg capsule,delayed 20 mg PO DAILY 30 days #30 caps 08/04/21 release ondansetron 4 mg disintegrating 4 mg PO Q6-8H PRN nausea and 08/04/21 tablet vomiting #14 tabs oxycodone-acetaminophen 5 mg-325 1 tab PO Q4-6H PRN pain, severe 08/15/21 mg tablet (Percocet) #30 tabs cyclobenzaprine 10 mg tablet 10 mg PO TID PRN pain, muscle 01/23/22 spasm #15 tabs boqgtbklhd-hrazqpsnsqphm-cexlvell 1 cap PO Q6H PRN headache #16 caps 11/05/22 50 mg-300 mg-40 mg capsule (Fioricet) <XAVIER Leslie - Last Filed: 11/05/22 15:29> Allergies/adverse reactions: Allergies Allergy/AdvReac Type Severity Reaction Status Date / Time No Known Allergies Allergy Verified 11/05/22 15:27 [No Known Allergies*] <XAVIER Leslie - Last Filed: 11/05/22 15:29> Review of Systems Constitutional: Constitutional: Reports as per HPI, Denies chills, Denies fatigue, Denies fever(s) and Reports headache(s) <Oswald Villanueva - Last Filed: 11/05/22 19:40> Eyes: Eyes: Denies blurry vision <Oswald Villanueva - Last Filed: 11/05/22 19:40> ENT: Reports dizziness and Reports headache(s) <Oswald Villanueva - Last Filed: 11/05/22 19:40> Cardiovascular: Cardiovascular: Denies chest pain and Denies dyspnea <Oswald Villanueva - Last Filed: 11/05/22 19:40> Respiratory: Respiratory: Denies cough and Denies dyspnea <Oswald Villanueva - Last Filed: 11/05/22 19:40> Gastrointestinal: Gastrointestinal: Reports nausea and Denies vomiting <Oswald Villanueva - Last Filed: 11/05/22 19:40> Neurologic: Reports dizziness, Reports headache(s) and Denies focal weakness <Oswald Villanueva - Last Filed: 11/05/22 19:40> Endocrine: Endocrine: Denies fatigue <Oswald Villanueva - Last Filed: 11/05/22 19:40> PMFSH Past Medical History Medical History: Medical History Gallstones No active medical problems <XAVIER Leslie - Last Filed: 11/05/22 15:29> Surgical History: Surgical History History of 2 sections History of laparoscopic cholecystectomy Tubal ligation status <XAVIER Leslie - Last Filed: 11/05/22 15:29> Social History Social History: Social History Alcohol intake: current Alcohol intake frequency: holidays/special occasions only Patient Tobacco Use Status: Never used Tobacco Smoked in Last 30 Days: No Use of substances other than those prescribed or required for medical reasons: No Advance Directives: No Advance Directives Information Provided: Yes <XAVIER Leslie - Last Filed: 11/05/22 15:29> Physical Exam ED Vital Signs: Vital Signs - 24 hr 11/05/22 15:25 11/05/22 18:03 Temperature 98.7 F Pulse Rate 83 79 Respiratory Rate 16 15 Blood Pressure 128/92 H 126/88 Pulse Oximetry 100 97 Oxygen Delivery Method Room Air Room Air BMI result Body Mass Index 32.9 <XAVIER Leslie - Last Filed: 11/05/22 15:29> Vital Signs - 24 hr 11/05/22 15:25 11/05/22 18:03 Temperature 98.7 F Pulse Rate 83 79 Respiratory Rate 16 15 Blood Pressure 128/92 H 126/88 Pulse Oximetry 100 97 Oxygen Delivery Method Room Air Room Air BMI result Body Mass Index 32.9 <Oswald Villanueva - Last Filed: 11/05/22 19:40> Const General: healthy appearing, comfortable, no acute distress, alert and awake <Oswald Villanueva - Last Filed: 11/05/22 19:40> Nutritional Appearance: well nourished <Oswald Villanueva - Last Filed: 11/05/22 19:40> Orientation/consciousness: patient oriented x3 <Oswald Villanueva - Last Filed: 11/05/22 19:40> HENMT Head: Yes normocephalic and Yes atraumatic <Oswald Villanueva - Last Filed: 11/05/22 19:40> Eyes Eyelids: Yes eyelids normal < Last Filed: 11/05/22 19:40> Conjunctivae: conjunctivae normal < Last Filed: 11/05/22 19:40> Sclerae: sclerae normal < Last Filed: 11/05/22 19:40> Corneas: corneas normal < Last Filed: 11/05/22 19:40> Pupils: Equal, round and reactive pupils present < Last Filed: 11/05/22 19:40> EOM: EOMs intact bilaterally < Last Filed: 11/05/22 19:40> Neck Neck: Yes full ROM < Last Filed: 11/05/22 19:40> Resp Effort & Inspection: normal respiratory effort, able to speak in complete sentences, no audible wheezes and not labored < Last Filed: 11/05/22 19:40> Auscultation: clear to auscultation bilaterally < Last Filed: 11/05/22 19:40> Cardio Rate: regular rate < Last Filed: 11/05/22 19:40> Rhythm: regular rhythm < Last Filed: 11/05/22 19:40> GI Inspection: No distended < Last Filed: 11/05/22 19:40> Palpation (GI): Soft to palpation, not firm, nontender, no guarding and not rigid < Last Filed: 11/05/22 19:40> Auscultation: normoactive bowel sounds < Last Filed: 11/05/22 19:40> Skin General skin exam: no rashes or lesions noted and elasticity normal < Last Filed: 11/05/22 19:40> Neuro General: patient oriented x3 < Last Filed: 11/05/22 19:40> Cranial nerves: Yes CN's II-XII intact bilaterally, Yes Equal, round and reactive pupils present and Yes Bilaterally intact EOM present <Oswald Nirmaly - Last Filed: 11/05/22 19:40> Cognition (Neuro): normal cognition <Oswald Villanueva - Last Filed: 11/05/22 19:40> Extrem Other: Moving all extremities well without any obvious deformities <Oswald OBethHeladio - Last Filed: 11/05/22 19:40> Course Course Course Narrative: This is an RME: Additional HPI, ROS, PE not included below will be deferred to primary provider. 31 year old female presents with right sided headache and associated right arm pain that started this morning when she awoke. Patient reports she has taken 3 excedrin today with no improvement. Additionally endorses photophobia. Patient reports normally excedrin helps her migraines, but this one feels different and is not responding. Patient rates the pain a 20/10. Denies visual disturbances, dizziness. PE: NIHSS 0 Plan: imaging, toradol, benadryl and reglan <XAVIER Leslie - Last Filed: 11/05/22 15:29> Reevaluation(s) Reevaluation #1: patient reports improvement in her symptoms, she is stable for discharge <Oswald Villanueva - Last Filed: 11/05/22 19:40> Time: 19:37 <Oswald Villanueva - Last Filed: 11/05/22 19:40> Medications Administered Discontinued Medications Generic Name Dose Route Start Last Admin Trade Name Varun PRN Reason Stop Dose Admin Acetaminophen/Butalbital/Caffeine 1 tab 11/05/22 18:17 11/05/22 18:28 Butalb/Acetamin/Caff 50/325/40 Tablet PO 11/05/22 18:18 1 tab ONCE ONE Administration Diphenhydramine HCl 50 mg 11/05/22 15:26 11/05/22 15:31 Diphenhydramine Hcl 50 Mg/Ml Vial IM 11/05/22 15:27 50 mg ONCE ONE Administration Sodium Chloride 1,000 mls @ 999 mls/hr 11/05/22 18:30 11/05/22 18:31 Ns IV 11/05/22 19:30 999 mls/hr .Q1H1M VIGNESH Administration Ketorolac Tromethamine 30 mg 11/05/22 15:26 11/05/22 15:31 Ketorolac Tromethamine 15 Mg/Ml Vial IM 11/05/22 15:27 30 mg ONCE ONE Administration Metoclopramide HCl 10 mg 11/05/22 15:26 11/05/22 15:31 Metoclopramide Hcl 10 Mg/2 Ml Vial IVPUSH 11/05/22 15:27 10 mg ONCE ONE Administration <XAVIER Leslie - Last Filed: 11/05/22 15:29> Medications Administered Discontinued Medications Generic Name Dose Route Start Last Admin Trade Name Freq PRN Reason Stop Dose Admin Acetaminophen/Butalbital/Caffeine 1 tab 11/05/22 18:17 11/05/22 18:28 Butalb/Acetamin/Caff 50/325/40 Tablet PO 11/05/22 18:18 1 tab ONCE ONE Administration Diphenhydramine HCl 50 mg 11/05/22 15:26 11/05/22 15:31 Diphenhydramine Hcl 50 Mg/Ml Vial IM 11/05/22 15:27 50 mg ONCE ONE Administration Sodium Chloride 1,000 mls @ 999 mls/hr 11/05/22 18:30 11/05/22 18:31 Ns IV 11/05/22 19:30 999 mls/hr .Q1H1M VIGNESH Administration Ketorolac Tromethamine 30 mg 11/05/22 15:26 11/05/22 15:31 Ketorolac Tromethamine 15 Mg/Ml Vial IM 11/05/22 15:27 30 mg ONCE ONE Administration Metoclopramide HCl 10 mg 11/05/22 15:26 11/05/22 15:31 Metoclopramide Hcl 10 Mg/2 Ml Vial IVPUSH 11/05/22 15:27 10 mg ONCE ONE Administration <Oswald Villanueva - Last Filed: 11/05/22 19:40> Medical Decision Making Medical Decision Making MDM Narrative: 31-year-old female past medical history significant for headaches presents for evaluation of a headache today. She states that this headache felt if the usual headaches. A CT scan of brain was ordered in triage that was unremarkable. The patient's neurologic exam is reassuring without any focal abnormalities. The patient has received Toradol, Reglan and Benadryl reports her headache has improved but is still dizzy and has pressure behind her head. will treat with Fioricet and one L of IV fluids <Oswald Villanueva - Last Filed: 11/05/22 19:40> Differential Diagnosis acute headache Migraine headache Dizziness Sinusitis Tension headache Cluster headache Intracranial tumor <Oswald Villanueva - Last Filed: 11/05/22 19:40> Discharge Plan Discharge Clinical Impression: Headache <XAVIER Leslie - Last Filed: 11/05/22 15:29> Patient Disposition: Home, Self-Care <XAVIER Leslie Last Filed: 11/05/22 15:29> Instructions: Acute Headache (ED) <XAVIER Leslie Last Filed: 11/05/22 15:29> Additional Instructions: your CT scan was reassuring. Your physical exam was also reassuring you may take Fioricet as needed for further headaches follow-up with your primary doctor <XAVIER Leslie - Last Filed: 11/05/22 15:29> Prescriptions: New ernnslobnv-smjiuwqjoryrh-fizq [Fioricet] 50-300-40 mg capsule 1 cap PO Q6H PRN (Reason: headache) Qty: 16 0RF No Action oxycodone-acetaminophen [Percocet] 5-325 mg tablet 1 tab PO Q4-6H PRN (Reason: pain, severe) Qty: 30 0RF cyclobenzaprine 10 mg tablet 10 mg PO TID PRN (Reason: pain, muscle spasm) Qty: 15 0RF omeprazole 20 mg capsule,delayed release(DR/EC) 20 mg PO DAILY 30 Days Qty: 30 0RF morphine 15 mg tablet 15 mg PO Q4-6H PRN (Reason: pain) Qty: 10 0RF Rx Instructions: The patient may ask for partial fill ondansetron 4 mg tablet,disintegrating 4 mg PO Q6-8H PRN (Reason: nausea and vomiting) Qty: 14 0RF ibuprofen 800 mg tablet 800 mg PO Q6H PRN (Reason: Pain) <XAVIER Leslie Last Filed: 11/05/22 15:29>
[2022-11-05 15:25] VITALS: BP 128/92; PULSE 83; RESP 16; TEMP 37.1; O2SAT 100; BMI 32.9
[2022-11-05] MEDS: diphenhydrAMINE HCL 50 MG/ML VIAL IM (15:31)
[2022-11-05] MEDS: Metoclopramide HCl 10 MG/2 ML VIAL IVPUSH (15:31)
[2022-11-05] MEDS: Ketorolac Tromethamine 15 MG/ML VIAL 30 MG IM (15:31)
[2022-11-05 18:03] VITALS: BP 126/88; PULSE 79; RESP 15; O2SAT 97
--- NOTE | 2022-11-05 18:04 | PC.NURSE ---
Pt brought back from waiting room, resting comfortably on stretcher at this time with family member present at beside. Respirations even and unlabored, no apparent distress. Pt reports 0/10 pain, admits head pressure but no pain. Also endorses dizziness but was walking with strong steady gait into ED
[2022-11-05] MEDS: Butalb/Acetamin/Caff 50/325/40 TABLET 1 TAB PO (18:28)
[2022-11-05] MEDS: 0.9 % Sodium Chloride 1,000 ML 999 ML IV (18:31)
== END 2022-11-05 19:50 | disposition home or self-care (01) ==
PROVIDERS: Emergency Provider Student in an Organized Health Care Education/Training Program
DX: R51.9 Headache, unspecified (principal)
CPT/HCPCS: 70450; 96361; 96372; 96374; 99284; J1200; J1885; J2765

== ENCOUNTER 2024-02-02 08:21 | Emergency (ER) | payer OTHER, SELFPAY ==
--- NOTE | ~2024-02-02 | CT_ITS ---
EXAMINATION: CT HEAD WITHOUT CONTRAST CLINICAL INFORMATION: Headaches. Dizziness COMPARISON: 11/05/2022 TECHNIQUE: Contiguous axial imaging was performed from the skull base to vertex without intravenous administration of contrast. This CT examination was performed using dose optimization techniques as appropriate, variously including the following: *Automated exposure control *Adjustment of mA and/or kV according to patient size (this includes techniques or standardized protocols for targeted exams where dose is matched to indication/reason for exam; i.e. extremities or head) *Use of iterative reconstruction technique DLP: 616 mGy-cm FINDINGS: No intra or extra-axial fluid collection, hemorrhage, mass, or mass effect. Ventricles and sulci are normal. Calvarium is intact. CT/CT head/brain wo IV con IMPRESSION: No acute intracranial pathology.
[2024-02-02 08:31] VITALS: BP 114/75; PULSE 80; RESP 16; TEMP 36.6; O2SAT 99; BMI 32.2
--- NOTE | 2024-02-02 08:38 | ED_ITS ---
HPI - General Adult General Chief complaint: Dizziness Stated complaint: dizzy fall head inj Time Seen by Provider: 02/02/24 08:32 Source: patient and human projectile Mode of arrival: ambulatory Limitations: language barrier History of Present Illness ED Provider: kayden DURAND narrative: Patient is a 33-year-old Citizen [place]-speaking female presenting to the emergency department with complaint of intermittent dizziness, headache and chest pain. States she has had intermittent chest pain/pressure for the past 2-3 days. Yesterday was at work sitting at her desk when she became dizzy. She laid her head on the desk but this made her symptoms worse. Reports associated headache. Went home and took Excedrin without relief. Then went to urgent care where she was referred to the ED. She decided to return home instead. Today continues to have 9/10 headache. Denies official diagnosis of migraines but reports frequent headaches. States does not usually have associated dizziness. Denies abdominal pain, nausea, vomiting. Denies syncope. Denies current chest pain. Denies weakness, numbeness, tingling to extremities. Denies cough, sore throat, ear pain. MD complaint: dizziness, headache, chest pain Onset (ago): day(s) Location: head Radiation: non-radiation Severity scale (1-10): 9 Quality: aching Pain Consistency: colicky Associated symptoms: chest pain and other Treatments prior to arrival: other Related Data Home Medications ?Medication ?Instructions ?Recorded ?Confirmed ibuprofen 800 mg tablet 800 mg PO Q6H PRN Pain 08/06/21 08/06/21 Previous Rx's ?Medication ?Instructions ?Recorded morphine 15 mg immediate release 15 mg PO Q4-6H PRN pain #10 tabs 08/04/21 tablet omeprazole 20 mg capsule,delayed 20 mg PO DAILY 30 days #30 caps 08/04/21 release ondansetron 4 mg disintegrating 4 mg PO Q6-8H PRN nausea and 08/04/21 tablet vomiting #14 tabs oxycodone-acetaminophen 5 mg-325 1 tab PO Q4-6H PRN pain, severe 08/15/21 mg tablet (Percocet) #30 tabs cyclobenzaprine 10 mg tablet 10 mg PO TID PRN pain, muscle 01/23/22 spasm #15 tabs qbxlyftvbb-oiuyqfokddbmd-mazvmmaq 1 cap PO Q6H PRN headache #16 caps 11/05/22 50 mg-300 mg-40 mg capsule (Fioricet) Allergies Allergy/AdvReac Type Severity Reaction Status Date / Time No Known Allergies Allergy Verified 02/02/24 08:33 [No Known Allergies*] Review of Systems 2 Review of Systems: As per HPI. Yes all other systems are reviewed and are negative Constitutional: Constitutional: Reports as per HPI [facility] Past Medical History Medical History Gallstones No active medical problems Surgical History History of 2 sections History of laparoscopic cholecystectomy Tubal ligation status Social History Social History Alcohol intake: current Alcohol intake frequency: holidays/special occasions only Patient Tobacco Use Status: Never used Tobacco Advance Directives: No Advance Directives Information Provided: Yes Physical Exam ED Vital Signs: Vital Signs - 24 hr 02/02/24 08:31 02/02/24 11:08 Temperature 98 F Pulse Rate 80 65 Respiratory Rate 16 12 Blood Pressure 114/75 109/72 Pulse Oximetry 99 100 Oxygen Delivery Method Room Air Room Air BMI result Body Mass Index 32.2 Vital signs have been reviewed and appear to be correct. Blood pressure normal. Heart rate normal. Respiratory rate normal. Temperature normal. Oxygen saturation normal. Const General: cooperative, healthy appearing and no acute distress Orientation/consciousness: oriented to person, oriented to place, oriented to time and patient oriented x3 Limitations: no limitations [facility] Head: Yes normocephalic and Yes atraumatic Ears: external ears normal General nose exam: Normal external nose present Face and sinus: Yes face symmetric Mouth: oropharynx normal and moist mucous membranes Throat: Yes uvula midline Eyes Pupils: Equal, round and reactive pupils present Neck Neck: Yes normal visual inspection, Yes no meningeal signs and Yes supple Resp Effort & Inspection: normal respiratory effort and able to speak in complete sentences Auscultation: clear to auscultation bilaterally Cardio Rate: regular rate Rhythm: regular rhythm Heart sounds: S1 normal heart sound present and S2 normal heart sound present GI Palpation (GI): Soft to palpation and nontender Auscultation: normoactive bowel sounds General: Yes no CVA tenderness Back/Spine/Pelvis Back: no CVA tenderness Skin General skin exam: elasticity normal and turgor normal Neuro General: oriented to person, oriented to place, oriented to time, patient oriented x3, gait normal, tone normal, moves all extremities, Normal light touch and pain sensation, no meningeal signs, no focal motor deficits, CN's II-XI intact bilaterally, deep tendon reflexes 2+ bilaterally and Klaudia Hallpike (+ left) Cranial nerves: Yes Equal, round and reactive pupils present Cognition (Neuro): normal cognition Motor exam (neuro): 5/5 motor strength present throughout, Normal motor muscle tone present throughout and Motor abnormalities not present Extrem General: Yes full ROM, Yes no pedal edema and Yes no calf tenderness Psych Mental Status: mental status grossly normal Affect: normal affect Thought process: Normal thought process present NIH Stroke Scale Internal: Initial- Upon Arrival Time: 08:57 Level of Consciousness: Alert Level of Consciousness Questions: Answers both questions correctly Level of Consciousness Commands: Performs both tasks correctly Best Gaze: Normal Visual: No visual loss Facial Palsy: Normal Motor Arm (Right): No drift Motor Arm (Left): No drift Motor Leg (Right): No drift Motor Leg (Left): No drift Limb Ataxia: Absent Sensory: Normal Best Language: No aphasia Dysarthia: Normal Extinction and Inattention: No abnormality Score: 0 Medications Administered Discontinued Medications Generic Name Dose Route Start Last Admin Trade Name Freq PRN Reason Stop Dose Admin Diphenhydramine HCl 25 mg 02/02/24 12:41 02/02/24 13:09 Diphenhydramine Hcl 50 Mg/Ml Vial IVPUSH 02/02/24 12:42 25 mg ONCE ONE Administration Sodium Chloride 1,000 mls @ 999 mls/hr 02/02/24 12:45 02/02/24 13:06 Ns IV 02/02/24 13:45 999 mls/hr .Q1H1M VIGNESH Administration Ketorolac Tromethamine 15 mg 02/02/24 12:41 02/02/24 13:07 Ketorolac Tromethamine 15 Mg/Ml Vial IVPUSH 02/02/24 12:42 15 mg ONCE ONE Administration Metoclopramide HCl 10 mg 02/02/24 12:41 02/02/24 13:08 Metoclopramide Hcl 10 Mg/2 Ml Vial IVPUSH 02/02/24 12:42 10 mg ONCE ONE Administration Medical Decision Making Medical Decision Making [facility] Narrative: Patient is a 33-year-old Citizen [place]-speaking female presenting to the emergency department with complaint of intermittent dizziness, headache and chest pain. On exam patient is awake, A+Ox3, VS WNL, afebrile, normal neurological exam without focal deficits, physical exam findings as above. Given reported symptoms and physical exam findings, initial differential includes migraine, BPPV, vestibular neuritis, cardiac arrhythmia, electrolyte abnormality. Unlikely ICH/infarct or ACS. EKG shows normal sinus rhythm. Labs notable for no leukocytosis, no anemia, negative troponin, no significant electrolyte abnormalities. CT head notable for no acute abnormalities. My interpretation is in agreement with the radiologist's interpretation. Positive Klaudia Hallpike on left. Neville maneuver performed with human projectile at bedside and patient also provided with instructions for performing these exercises at home. Headache improved with medications given in the ED. Follow up with PCP. Return precautions discussed. Patient verbalized understanding of and agreement with plan. Differential Diagnosis Differential Diagnoses: The differential diagnosis associated with the presentation includes As per [facility] Admission/Observation Consideration of admission/observation: Escalation of care including admission/observation considered Patient would have been admitted to the hospital had their work up had any findings where hospital admission was appropriate and their clinical presentation warranted hospital admission. Lab Data [facility] Lab Attestation statement: I reviewed the patient's lab results. As per [facility]. 02/02/24 09:01 02/02/24 09:01 Labs: Lab Results 02/02/24 Range/Units 09:01 WBC 5.0 (4.8-10.8) X10*3/uL RBC 4.26 (4.20-5.50) X10*6/uL Hgb 12.2 (12.0-16.0) g/dl Hct 35.8 L (37.0-47.0) % MCV 84.0 (80.0-98.0) fL MCH 28.6 (27.0-33.0) pg MCHC 34.1 (31.0-35.0) g/dl RDW 13.1 (11.0-16.0) % Plt Count 234 (160-400) X10*3/uL MPV 11.5 (9.4-12.3) fL Immature Gran % (Auto) 0.2 (0.0-0.4) % Neut % (Auto) 65.9 (45-73) % Lymph % (Auto) 26.7 (20-40) % [place] % (Auto) 5.8 (2-11) % Eos % (Auto) 0.8 (0-4) % Baso % (Auto) 0.6 (0-2) % Lymph # (Auto) 1.3 (1.2-4.9) X10*3/uL [place] # (Auto) 0.3 (0.1-1.2) X10*3/uL Eos # (Auto) 0.0 (0.0-0.4) X10*3/uL Baso # (Auto) 0.0 (0.0-0.2) X10*3/uL Abs Immat Gran (auto) 0.01 (0.00-0.03) X10*3/uL Absolute Neuts (auto) 3.3 (2.0-8.3) x10*3/uL Absolute Nucleated RBC 0.000 (0.0-0.012) X10*3/uL Nucleated RBC % (auto) 0.0 (0.0-0.2) /100WBC Sodium 137 (135-145) mmol/L Potassium 4.0 (3.3-5.1) mmol/L Chloride 110 H (96-108) mmol/L Carbon Dioxide 20 L (22-29) mmol/L Anion Gap 11 L (12-20) BUN 10 (9-16) mg/dL Creatinine 0.79 (0.5-1.4) mg/dL Estim Creat Clear Calc 98.2 Estimated GFR > 60 Random Glucose 118 H (60-115) mg/dL Calcium 8.9 D (8.4-10.2) mg/dL Total Bilirubin 0.4 (0.0-1.0) mg/dL AST 21 (5-31) U/L ALT 24 (0-31) U/L Alkaline Phosphatase 57 (39-117) U/L Troponin I High Sens < 2.7 (<3.5-17.0) ng/L Total Protein 6.6 (6.5-8.0) g/dL Albumin 4.0 (3.5-5.0) g/dL Beta HCG, Quant < 2 mIU/mL Independent Interpretation I performed an independent interpretation of an: EKG (normal sinus rhythm, rate 76bpm, normal MT interval and QTc) and CT Scan Interpretation: CT head is without evidence of acute abnormalities Radiology Impression Discussion of test interpretation with radiology: I have reviewed the radiologist's reading. Radiologist Impression: CT/CT head/brain wo IV con IMPRESSION: No acute intracranial pathology. External Record Review External record reviewed: Inpatient record, Office record and Outpatient record Discharge Plan Discharge Clinical Impression: Headache, Vertigo Patient Disposition: Home, Self-Care Instructions: Acute Headache (DC), Dizziness (ED), Vertigo (DC) Additional Instructions: You have been evaluated in the emergency department today for dizziness and headache. Your evaluation suggests that your symptoms are most likely due to peripheral vertigo and/or migraine. Your symptoms improved with medication in the ED. You can also continue to do the Neville maneuvers at home to help relieve your symptoms, instructions have been included in your discharge paperwork. Please follow up with your primary care provider within the next 3 days. Return to the emergency department immediately for worsening or uncontrolled symptoms, worsening headache, chest pain, shortness of breath, persistent vomiting, vision changes, fainting, or for any other concerning symptoms. Prescriptions: No Action oxycodone-acetaminophen [Percocet] 5-325 mg tablet 1 tab PO Q4-6H PRN (Reason: pain, severe) Qty: 30 0RF cyclobenzaprine 10 mg tablet 10 mg PO TID PRN (Reason: pain, muscle spasm) Qty: 15 0RF omeprazole 20 mg capsule,delayed release(DR/EC) 20 mg PO DAILY 30 Days Qty: 30 0RF morphine 15 mg tablet 15 mg PO Q4-6H PRN (Reason: pain) Qty: 10 0RF Rx Instructions: The patient may ask for partial fill ondansetron 4 mg tablet,disintegrating 4 mg PO Q6-8H PRN (Reason: nausea and vomiting) Qty: 14 0RF mnmvlgbhls-tygsbhehkasns-dyit [Fioricet] 50-300-40 mg capsule 1 cap PO Q6H PRN (Reason: headache) Qty: 16 0RF ibuprofen 800 mg tablet 800 mg PO Q6H PRN (Reason: Pain) Print Language: Citizen [place]
--- NOTE | 2024-02-02 08:39 | ECG_ITS ---
Test Reason : chest pressure Blood Pressure : / mmHG Vent. Rate : 076 BPM Atrial Rate : 076 BPM P-R Int : 152 ms QRS Dur : 082 ms QT Int : 358 ms P-R-T Axes : 040 -08 008 degrees QTc Int : 402 ms Normal sinus rhythm Normal ECG When compared with ECG of 04-AUG-2021 10:32, No significant change was found Referred By: Macey Martins Electronically Signed By:Jose L Gomez
[2024-02-02 09:05] LABS: MANUAL DIFF FLAG NO
[2024-02-02 09:10] LABS: Basophils Percent Auto 0.6 % (0-2); Eosinophils Percent Auto 0.8 % (0-4); Hematocrit 35.8 % (37.0-47.0); Hemoglobin 12.2 g/dl (12.0-16.0); Imm Gran Abs Auto 0.01 X10*3/uL (0.00-0.03); Imm Gran Pct Auto 0.2 % (0.0-0.4); Lymphocytes Absolute Auto 1.3 X10*3/uL (1.2-4.9); Lymphocytes Percent Auto 26.7 % (20-40); Mean Corpuscular HGB Conc 34.1 g/dl (31.0-35.0); Mean Corpuscular Hemoglobin 28.6 pg (27.0-33.0); Mean Platelet Volume 11.5 fL (9.4-12.3); Monocytes Absolute Auto 0.3 X10*3/uL (0.1-1.2); Monocytes Percent Auto 5.8 % (2-11); Neutrophils Absolute Auto 3.3 x10*3/uL (2.0-8.3); Neutrophils Percent Auto 65.9 % (45-73); Platelet Count 234 X10*3/uL (160-400); Red Blood Count 4.26 X10*6/uL (4.20-5.50); Red Cell Distribution Width 13.1 % (11.0-16.0)
[2024-02-02 09:33] LABS: Alanine Aminotransferase 24 U/L (0-31); Alkaline Phosphatase 57 U/L (39-117); Anion Gap 11 (12-20); Aspartate Amino Transferase 21 U/L (5-31); Bilirubin Total 0.4 mg/dL (0.0-1.0); Blood Urea Nitrogen 10 mg/dL (9-16); Calcium 8.9 mg/dL (8.4-10.2); Carbon Dioxide 20 mmol/L (22-29); Chloride 110 mmol/L (96-108); Creatinine Clr Calc Pharmacy 98.2; Estimated Glomerular Filt Rate > 60; Glucose Random 118 mg/dL (60-115); Sodium 137 mmol/L (135-145); Total Protein 6.6 g/dL (6.5-8.0)
[2024-02-02 09:37] LABS: HCG Quantitative < 2 mIU/mL; Troponin-I High Sensitivity < 2.7 ng/L (<3.5-17.0)
[2024-02-02 11:08] VITALS: BP 109/72; PULSE 65; RESP 12; O2SAT 100
[2024-02-02] MEDS: 0.9 % Sodium Chloride 1,000 ML 999 ML IV (13:06)
[2024-02-02] MEDS: Ketorolac Tromethamine 15 MG/ML VIAL IVPUSH (13:07)
[2024-02-02] MEDS: Metoclopramide HCl 10 MG/2 ML VIAL IVPUSH (13:08)
[2024-02-02] MEDS: diphenhydrAMINE HCL 50 MG/ML VIAL 25 MG IVPUSH (13:09)
[2024-02-02 15:39] VITALS: BP 109/72; PULSE 84; RESP 18; TEMP 37.1; O2SAT 99
[2024-02-02 15:47] VITALS: BP 109/72; PULSE 84; RESP 18; TEMP 37.1; O2SAT 99
== END 2024-02-02 15:47 | disposition home or self-care (01) ==
PROVIDERS: Registered Nurse Emergency; Emergency Provider Emergency Medicine
DX: R51.9 Headache, unspecified (principal); R42 Dizziness and giddiness; R07.89 Other chest pain; Z79.899 Other long term (current) drug therapy
CPT/HCPCS: 36415; 70450; 80053; 84484; 84702; 85025; 93005; 96374; 96375; 99284; J1200; J1885; J2765

== ENCOUNTER → 2024-02-02 08:39 | Outpatient (BNV) | payer OTHER, SELFPAY | PROVIDERS: Emergency Provider Emergency Medicine; Visit Provider Internal Medicine Cardiovascular Disease | DX: R07.89 Other chest pain (principal) | CPT/HCPCS: 93010 ==

== ENCOUNTER 2024-05-05 10:11 | Outpatient (AMB) | payer OTHER, SELFPAY ==
--- NOTE | 2024-05-05 10:13 | A.OFFPC_ITS ---
Vital Signs 05/05/24 10:19 Height 5 ft 2 in Weight 181 lb 6 oz BMI 33.2 BP 122/70 Blood Pressure Location Rt brachial Position Sitting Respiration 13 Pulse 53 Pulse Source Pulse Oximeter Pulse Oximetry (%) 99 Oxygen Delivery Method Room Air Intake Visit Reasons: EST/NEED PCP/DIZZINESS Intake Note: new patient to establish care and complaining of dizziness x 4 months Chopped Strand Operator Required: No Allergies No Known Allergies [No Known Allergies*] Allergy (Verified 05/05/24 10:37) Medication List - Last Reconciled 05/05/24 by Mariela Grover [facility] No Known Home Meds Tobacco use date assessed: 05/05/24 Dental Screening Dental Screen Date: 05/05/24 Did you have a dental visit in the last 12 months?: Yes Did you have a dental problem in the last 6 months where you did not have access to dental care?: No Was dental information given to patient?: Patient has dentist HPI HPI Comments History of Present Illness Details 33-year-old Rwandan speaking female with small umbilical hernia containing fat, family hx of breast ca,peronal hx of molar , MDD, EDISON, HSV, migraine headache with aura, obesity laparoscopic cholecystectomy last August 15, 2021 , c section x 2, tubal ligation Social: has 2 live children, 1 molar , 1 miscarriage; 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 Reports last care [address] [place] In addition to CPE she has several active complaints that need to be addressed. Labs January 2024 reviewed WNL Strong family hx of cancer, see above. Would like to see a specialist. She also has a hx of a molar . She is not currently managed by SALES CONTRACT ADMINISTRATOR. She is due for routine screening. Having frequent headaches, migraines w/ visual aura, she was given migraine meds but this caused side effects of feeling dizzy. Can feel dizzy w/o headaches. Has some palpitations at times, too. Has never had Neuro eval. She did go to the ED for this. Treated w/ benadryl as this was thought to be stress related. She states this did not help. This document was reviewed 01/2024. Has swelling of bilat feet and hands that comes and goes, unknown cause. Would like STD Screening, does not have sx. Optho Last eye exam 2 years ago, glasses but does not wear. Has visual halos treated w laser tx in [place] but did not complete. Does not have records Uses prn valacylovir for oral herpes outbreaks Plan Tdap and flu admin today Refer to [facility] Gen Surg for genetic testing/mgmt Refer to [facility] SALES CONTRACT ADMINISTRATOR for cervical cancer screening Refer to neuro for headaches and dizziness Labs and STD screening Refer to Optho Refer to counseling Valacylovir to be used PRN sent RTO 1 year CPE, sooner PRN This note is constructed using voice recognition software. While every effort has been made to ensure accuracy in public information specialist, still errors may have been included Sometimes, these errors may affect the content or meaning of the given sentence . An additional 20 was spent addressing the problem(s) noted at [facility] visit. This includes time spent before the visit reviewing the chart, time spent during the visit, and time spent after the visit on documentation [facility] Medical History (Updated 05/05/24 @ 12:22 by Mariela Grover [facility]) No active medical problems Surgical History History of laparoscopic cholecystectomy Tubal ligation status History of 2 sections Family History (Updated 05/05/24 @ 11:11 by Micheal Troncoso MA) Mother Mental health disorder Cancer Psychiatric disorder Maternal Grandmother Mental health disorder Hypertension High cholesterol Psychiatric disorder Paternal Grandmother Asthma High cholesterol Thyroid disorder Cancer Father Alcoholism Social History (Updated 05/05/24 @ 10:24 by Micheal Troncoso MA) Household Members: Children Both parents involved: No Caregiver staying overnight: No Housing: Apartment Are you a primary assisted living care manager to a significant other at home: Yes (kids) Do you presently have visiting nurse or other home services: No 75 years or older and lives alone: No Alcohol intake: never Patient Tobacco Use Status: Never used Tobacco e-Cigarette/Vaping Use: Never Used Second Hand Smoke Exposure: No service: No Current occupational status: employed 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 1. Little interest or pleasure in doing things: not at all 2. Feeling down, depressed, or hopeless: not at all 3. Trouble falling or staying asleep, or sleeping too much: not at all 4. Feeling tired or having little energy: several days 5. Poor appetite or overeating: several days 6. Feeling bad about yourself - or that you are a failure or have let yourself or your family down: not at all 7. Trouble concentrating on things, such as reading the newspaper or watching t elevision: nearly every day 8. Moving or speaking so slowly that other people could have noticed. Or the opposite - being so fidgety or restless that you have been moving around a lot more than usual: several days 9. Thoughts that you would be better off or of hurting yourself in some way: not at all Total score: 6 63952 - PHQ-9 Billing: Yes Source: Developed by Drs. Fawad Dillon, Divya Davis, Peter Ryder and colleagues, with an educational kelvin from [email or web address]. Thrive Questionnaire Date Thrive assessed: 05/05/24 I am a: Patient What is your living situation today?: I have a steady place to live Within the past 12 months, did the food you bought not last and you didn't have the money to get more?: Sometimes True Within the past 12 months, did you worry whether your food would run out before you got money to buy more?: Sometimes True Do you have trouble paying for medicines?: No Do you have trouble getting transportation to medical appointments?: No Do you have trouble paying your heating and electricity bill?: Yes Do you have trouble taking care of your child, family member or friend?: No Do you have trouble with day-to-day activities such as bathing, preparing meals, shopping, managing finances, etc.?: No Are you currently unemployed and looking for a job?: No Are you interested in more education?: Yes THRIVE Score: 3 AUDIT C Alcohol Use Questionnaire (AUDIT-C) 1. How often do you have a drink containing alcohol?: Never 3. How often do you have six or more drinks on one occasion?: Never Total Score: 0 EDISON-7 AMB Questionnaire EDISON-7 Date EDISON - 7 assessed: 05/05/24 Source: Developed by Drs. Fawad Dillon, Divya Davis, Peter Ryder and colleagues, with an educational kelvin from [email or web address]. EDISON-7 Assessment Billing EDISON-7 Assessment Tool: pt declined-do not bill Review of Systems Const Details: Constitutional: Denies fever. Skin: Denies rash. Eye: Denies eye pain. ENMT: Denies sore throat and nasal congestion. Respiratory: Denies shortness of breath and cough. Gastrointestinal: Denies nausea, vomiting or abdominal pain. Cardiovascular: Denies chest pain and syncope. Genitourinary: Denies dysuria. Musculoskeletal: Denies back pain and extremity pain. Neurologic: Denies confusion, and weakness. Psychiatric: Denies suicidal thoughts and substance abuse. Allergy/ Immunologic: Denies impaired immunity. Physical exam (Primary Care) Vital Signs: Last Vital Signs Pulse 53 05/05/24 10:19 Resp 13 05/05/24 10:19 BP 122/70 05/05/24 10:19 Pulse Ox 99 05/05/24 10:19 Oxygen Delivery Method Room Air 05/05/24 10:19 BMI result Body Mass Index 33.2 BMI Assessment/Plan discussion: High BMI High, discussed plan: lifestyle Tobacco/Smoking Status: Tobacco use Status Tobacco use date assessed 05/05/24 05/05/24 10:26 Patient Tobacco Use Status Never used Tobacco 05/05/24 10:24 e-Cigarette/Vaping Use Never Used 05/05/24 10:26 PHQ-9: PHQ-9 Score PHQ-9: Total score 6 05/05/24 12:16 Thrive Assessment: Date of Thrive Assessment Date Thrive assessed 05/05/24 05/05/24 10:58 Const Other: General: Well developed, well nourished, in no acute distress. Appears stated age. Head: Normocephalic, atraumatic. Eyes: Pupils are equal, round and reactive to light and accommodation. Conjunctivae are clear. Vision grossly normal. Ears: TMs clear AU, EACS WNL Nose: Patent, without discharge. Mouth: There are no ulcers or lesions noted. No inflammation, no post nasal drip, no plaques nor exudates. Neck: Supple, no adenopathy or thyromegaly. Lungs: Clear to auscultation bilaterally. No rales, rhonchi or wheeze noted. Good air flow in all enamorado. Heart: Regular rate and rhythm. No murmurs, click, rubs or gallops are noted. Abdomen: Bowel sounds present in all quadrants. The abdomen is soft, nontender, with no masses or organomegaly noted. No hernias are noted. Musculoskeletal: Joints are nontender, without swelling, redness, or effusions. Range of motion is observed to be normal. Pulses: Peripheral pulses are equal and palpable bilaterally. Extremities: No clubbing, cyanosis nor edema is noted. Neurologic: Gait and station normal. Cranial Nerves 2-12 intact. Motor strength grossly symmetrical and intact. No sensory loss. Balance normal. Skin: No rashes, ulcers, or lesions noted. Turgor is good. Skin color is good. Hair and nails are without abnormalities. Psych: Normal eye contact, affect and mood appropriate, and normal interactions. Patient is alert and appropriate to context. Office Procedures Flu Questionnaire Does the patient have a severe egg allergy?: No Does the patient have severe life threatening allergies?: No Does the patient have a fever or illness today?: No Has the patient ever had Guillain-Himrod Syndrome?: No Has the patient ever had any past reaction to a flu shot?: No Immunizations Fluarix Triv [id number] (PF) 45 mcg (15 mcg x 3)/0.5 mL IM syringe Performing Provider: SHERRIE Arcos Performing Location: [facility] Family Medicine Administered by: Natividad Maria RN on 05/05/24 10:49 Dose Route Admin Location Dispensed Lot Number Expiration Date [employer] Extrusion Process Operator 0.5 mL IM Right Deltoid 0.5 mL [id number] 01/01/25 29569-681-80 [employer] VIS Given Date VIS Provided VIS Publication Date 05/05/24 Single Vaccine 21 Eligibility Eligibility Date Funding Source Not [facility] Eligible 05/05/24 Private Administration Comments: Patient received two shots today, flu and TDaP, in right deltoid. Flu was above TDaP. Boostrix Tdap 2.5 Lf unit-8 mcg-5 Lf/0.5 mL intramuscular syringe Performing Provider: SHERRIE Arcos Performing Location: [facility] Family [facility] Administered by: Natividad Maria RN on 05/05/24 10:49 Dose Route Admin Location Dispensed Lot Number Expiration Date [facility] Extrusion Process Operator 0.5 mL IM Right Deltoid 0.5 mL [id number] 05/20/26 52675-871-94 [employer] VIS Given Date VIS Provided VIS Publication Date 05/05/24 Single Vaccine 21 Eligibility Eligibility Date Funding Source Not [facility] Eligible 05/05/24 Private Administration Comments: Patient received two shots today, flu and TDaP, in right deltoid. Flu was above TDaP. Coding Level of Care Code New Pt Level 2 (60882) New Pt Prev Care 18-39yr(93640 Diagnoses Encounter for general adult medical examination with abnormal findings Z00.01 Family history of breast cancer Z80.3 BMI 33.0-33.9,adult Z68.33 Class 1 obesity due to excess calories without serious comorbidity with body mass index (BMI) of 33.0 to 33.9 in adult E66.811; E66.09; Z68.33 Obesity type: due to excess calories Serious obesity comorbidity presence: without serious comorbidity History of molar Z87.59 Screening for cervical cancer Z12.4 Migraine with aura and without status migrainosus, not intractable G43.109 Intractability: not intractable Status migrainosus presence: without status migrainosus Dizziness R42 Visual halos H53.19 Wears glasses Z97.3 EDISON (generalized anxiety disorder) F41.1 Moderate episode of recurrent major depressive disorder F33.1 Active/Remission status: currently active Major depression episode severity: moderate Major depression recurrence: recurrent Herpes B00.9 Laboratory exam ordered as part of routine general medical examination Z00.00 Assessment & Plan Assessment & Plan (1) Encounter for general adult medical examination with abnormal findings: Code(s): Z00.01 - Encounter for general adult medical examination with abnormal findings Plan: . (2) Family history of breast cancer: Code(s): Z80.3 - Family history of malignant neoplasm of breast Category: Medical Plan: . (3) BMI 33.0-33.9,adult: Code(s): Z68.33 - Body mass index [BMI] 33.0-33.9, adult Category: Medical Plan: . (4) Class 1 obesity with body mass index (BMI) of 33.0 to 33.9 in adult: Code(s): E66.811 - Obesity, class 1; Z68.33 - Body mass index [BMI] 33.0-33.9, adult Category: Medical Qualifiers: Obesity type: due to excess calories Serious obesity comorbidity presence: without serious comorbidity Qualified Code(s): E66.811 - Obesity, class 1; E66.09 - Other obesity due to excess calories; Z68.33 - Body mass index [BMI] 33.0-33.9, adult Plan: . (5) History of molar : Code(s): Z87.59 - Personal history of other complications of , childbirth and the puerperium Category: Medical Plan: . (6) Screening for cervical cancer: Code(s): Z12.4 - Encounter for screening for malignant neoplasm of cervix Category: Medical Plan: . (7) Migraine with aura: Code(s): G43.109 - Migraine with aura, not intractable, without status migrainosus Category: Medical Qualifiers: Intractability: not intractable Status migrainosus presence: without status migrainosus Qualified Code(s): G43.109 - Migraine with aura, not intractable, without status migrainosus Plan: . (8) Dizziness: Code(s): R42 - Dizziness and giddiness Category: Medical Plan: . (9) Visual halos: Code(s): H53.19 - Other subjective visual disturbances Category: Medical Plan: . (10) Wears glasses: Code(s): Z97.3 - Presence of spectacles and contact lenses Category: Medical Plan: . (11) EDISON (generalized anxiety disorder): Code(s): F41.1 - Generalized anxiety disorder Category: Medical Plan: . (12) MDD (major depressive disorder): Code(s): F32.9 - Major depressive disorder, single episode, unspecified Category: Medical Qualifiers: Active/Remission status: currently active Major depression episode severity: moderate Major depression recurrence: recurrent Qualified Code(s): F33.1 - Major depressive disorder, recurrent, moderate Plan: . (13) Herpes: Code(s): B00.9 - Herpesviral infection, unspecified Category: Medical Plan: . (14) Laboratory exam ordered as part of routine general medical examination: Code(s): Z00.00 - Encounter for general adult medical examination without abnormal findings Category: Medical Plan: . Orders: Orders TDaP Immunization Today Z23 - Encounter for immunization Complete Blood Count no Diff Today E66.811 - Obesity, class 1, Z00.00 - Encounter for general adult medical examination without abnormal findings, Z11.3 - Encounter for screening for infections with a predominantly sexual mode of transmission, Z68.33 - Body mass index [BMI] 33.0-33.9, adult Comprehensive Met. Panel Today E66.811 - Obesity, class 1, Z00.00 - Encounter for general adult medical examination without abnormal findings, Z11.3 - Encounter for screening for infections with a predominantly sexual mode of transmission, Z68.33 - Body mass index [BMI] 33.0-33.9, adult CT NG by PCR Today E66.811 - Obesity, class 1, Z00.00 - Encounter for general adult medical examination without abnormal findings, Z11.3 - Encounter for screening for infections with a predominantly sexual mode of transmission, Z68.33 - Body mass index [BMI] 33.0-33.9, adult Microalbumin, Random (w Creat) Today E66.811 - Obesity, class 1, Z00.00 - Encounter for general adult medical examination without abnormal findings, Z11.3 - Encounter for screening for infections with a predominantly sexual mode of transmission, Z68.33 - Body mass index [BMI] 33.0-33.9, adult TSH reflex Free T4 Today E66.811 - Obesity, class 1, Z00.00 - Encounter for general adult medical examination without abnormal findings, Z11.3 - Encounter for screening for infections with a predominantly sexual mode of transmission, Z68.33 - Body mass index [BMI] 33.0-33.9, adult Vitamin D 25-OH Total Today E66.811 - Obesity, class 1, Z00.00 - Encounter for general adult medical examination without abnormal findings, Z11.3 - Encounter for screening for infections with a predominantly sexual mode of transmission, Z68.33 - Body mass index [BMI] 33.0-33.9, adult Syphilis Screen Today E66.811 - Obesity, class 1, Z00.00 - Encounter for general adult medical examination without abnormal findings, Z11.3 - Encounter for screening for infections with a predominantly sexual mode of transmission, Z68.33 - Body mass index [BMI] 33.0-33.9, adult Influenza [id number] Immunization Today Z23 - Encounter for immunization Hemoglobin A1c Today E66.811 - Obesity, class 1, Z00.00 - Encounter for general adult medical examination without abnormal findings, Z11.3 - Encounter for screening for infections with a predominantly sexual mode of transmission, Z68.33 - Body mass index [BMI] 33.0-33.9, adult Lipid Panel Today E66.811 - Obesity, class 1, Z00.00 - Encounter for general adult medical examination without abnormal findings, Z11.3 - Encounter for screening for infections with a predominantly sexual mode of transmission, Z68.33 - Body mass index [BMI] 33.0-33.9, adult IRON PROFILE Today E66.811 - Obesity, class 1, Z00.00 - Encounter for general adult medical examination without abnormal findings, Z11.3 - Encounter for screening for infections with a predominantly sexual mode of transmission, Z68.33 - Body mass index [BMI] 33.0-33.9, adult Vitamin B12 and Folate Today E66.811 - Obesity, class 1, Z00.00 - Encounter for general adult medical examination without abnormal findings, Z11.3 - Encounter for screening for infections with a predominantly sexual mode of transmission, Z68.33 - Body mass index [BMI] 33.0-33.9, adult HIV Ab/Ag Today E66.811 - Obesity, class 1, Z00.00 - Encounter for general ad ult medical examination without abnormal findings, Z11.3 - Encounter for screening for infections with a predominantly sexual mode of transmission, Z68.33 - Body mass index [BMI] 33.0-33.9, adult Herpes Simplex Virus Ab IgG Today E66.811 - Obesity, class 1, Z00.00 - Encounter for general adult medical examination without abnormal findings, Z11.3 - Encounter for screening for infections with a predominantly sexual mode of transmission, Z68.33 - Body mass index [BMI] 33.0-33.9, adult Referrals Breast Surgery Referral Z80.3 - Family history of malignant neoplasm of breast SENIOR EXECUTIVE ASSISTANT Referral Z12.4 - Encounter for screening for malignant neoplasm of cervix, Z87.59 - Personal history of other complications of , childbirth and the puerperium Ophthalmology Referral H53.19 - Other subjective visual disturbances, Z97.3 - Presence of spectacles and contact lenses Nurse Navigator Referral F32.9 - Major depressive disorder, single episode, unspecified, F41.1 - Generalized anxiety disorder Neurology Referral G43.109 - Migraine with aura, not intractable, without status migrainosus, R42 - Dizziness and giddiness Medications: New valacyclovir 500 mg PO BID PRN 30 tabs 2RF herpes outbreak Patient Instructions: Walk-In Care (Urgent Care): We Make it Easy Walk-in for urgent medical issues such as: ? Seasonal Allergies ? Insect Bites ? Cough ? Diarrhea ? Acute Asthma Attacks ? Back, Knee or Joint Pain ? Ear Infection ? Fever without a Rash ? Headaches ? Nausea ? [place] Eye, Rash or Skin Irritation ? Sore Throat ? Sports Physicals ? Vomiting Most insurances are accepted. Patients do not need to be part of the [facility] to seek care at the walk-in clinic. Locations [facility] , [place] [address] ? [phone] [facility] [place] [place] Walk-In Care in [place] provides services to ages 18 and over. Open Wednesday-Wednesday: 8 a.m. to 5 p.m. and Wednesday: 9 a.m. to 3 p.m.* *Hours may vary due to staffing availability. To confirm Walk-In Care hours in [place], please call [phone]. [address] [place] [address] ? [phone] [facility] [place] Walk-In Care in [place] provides services to ages 12 and over. Open Wednesday-Wednesday: 8 a.m. to 5 p.m. Hours may vary due to staffing availability. To confirm Walk-In Care hours in [place], please call [phone]. LABORATORY SERVICES: [facility] Lab ? Primary Location [address] [place] [address] Wednesday through Wednesday 6:00 AM ? 5:00 PM Wednesday 7:00 AM ? 11:00 AM* [phone] The [facility] Lab is centrally located near the front entrance of the [facility] Center for easy outpatient access. Convenient parking is provided for outpatients. *Hours may vary due to staffing availability. To confirm Laboratory hours for any location, please call [phone]. Offsite Location For your convenience, we offer offsite laboratory draw stations at the following locations: [address] [facility] [place] ? [facility] [address], [address], [place] Wednesday through Wednesday 7:30 AM ? 1:00 PM* [phone] *Hours may vary due to staffing availability. To confirm Laboratory hours for any location, please call [phone]. [place] ? [facility] [address] [facility], [place] Wednesday through Wednesday 6:00 AM ? 3:30 PM* Wednesday 6:30 AM ? 3 PM* [phone] *Hours may vary due to staffing availability. To confirm Laboratory hours for any location, please call [phone] [place] [address] Wednesday through Wednesday 7:30 AM ? 4:00 PM* [phone] *Hours may vary due to staffing availability. To confirm Laboratory hours for any location, please call [phone] [place] [address] Wednesday through 9:00 AM ? 4:00 PM* *Hours may vary due to staffing availability. To confirm Laboratory hours for any location, please call [phone]. Appointments are not necessary. Walk-ins are welcome. Like all the departments throughout the [facility], our Lab undergoes frequent reviews to ensure the quality and accuracy of test results, and our staff takes special pride in its status as a nationally accredited facility. Patient Portal: ONE PATIENT. ONE RECORD. BETTER CARE. [facility] has a fully integrated, cutting- edge mobile electronic health information system that has revolutionized the way we care for our patients and manage our organization. This system improves communication and coordination enabling us to provide safe, higher-quality care, and an overall positive experience for staff and patients. Our first priority, as always, is to deliver the highest quality care possible. The system is running in the background supporting that priority. This portal is for all [facility] services and practices. If you are experiencing any technical difficulties with enrolling or logging into the Patient Portal please complete the [facility] Patient Portal Technical Support Form. [facility] and [facility] now offers a new secure on-line interactive tool for patients to review their health information ? Patient Portal. This interactive web portal will enable patients and their families to take an active role in their care by providing easy, secure access to their health information via the internet. The Patient Portal provides patients with instant access to their health information, including laboratory results, medications, allergies, demographic information, visit history, and more. In addition to managing their own care, parents and health care proxies with authorized consent will appreciate the ability to access the records of those individuals for whom they provide care. Please note: if you wish to gain access (Proxy) to another patient?s portal, you will be required to come to the Medical Records Department in person at [facility]. Both the patient giving proxy access and the proxy will need to provide photo identification and complete the appropriate authorization. The Patient Portal also allows track their appointments online. The [facility] Patient Portal also saves patients time by allowing them to submit updates to their demographic and contact information prior to their visits. Portal email notifications will also alert patients to any new activity on their portal, such as test results and new appointments. In order to initially enroll in the [facility] Patient Portal, you will need to enter some required information including the following: ? your [facility] Medical Record number ? your personal home email address ? name ? date of Please note: In order to enroll in the [facility] Patient Portal, we need to have your email address on file in your electronic medical record. The email address needs to be specific for one person (yourself) in order for your Portal enrollment to be successful. You can update your email address in person with our Registration staff when you are registering for a hospital visit. Otherwise, you will need to come to the Health Information Management (Medical Records) Department at [facility]. We are open from Wednesday ? Wednesday from 7:30 a.m. ? 4:30 p.m. You will be required to present a photo id. Once you have successfully enrolled in the Patient Portal, you will receive a one-time user id and password for the Portal, sent to your email address. This will allow you to log into the Patient Portal within 99 hrs and reset your own logon id and password, and define personal security questions. Once your permanent login and password have been set, you can log into the [facility] Patient Portal at any time via the blue button above or from the Portal Logon button on any page of the [facility] website. [facility] and [facility] encourage all of our patients to enroll in Patient Portal as it presents a valuable opportunity for patients and their families to actively participate in their care and stay healthy Welcome to [facility]. We look forward to working with you. Health screenings for women You should visit your health care provider from time to time, even if you are healthy. The purpose of these visits is to: Screen for medical issues Assess your risk for future medical problems Encourage a healthy lifestyle Update vaccinations and other preventive care services Help you get to know your provider in case of an illness Information Even if you feel fine, you should still see your provider for regular checkups. These visits can help you avoid problems in the future. For example, the only way to find out if you have high blood pressure is to have it checked regularly. High blood sugar and high cholesterol levels also may not have any symptoms in the early stages. A simple blood test can check for these conditions. There are specific times when you should see your provider or receive specific health screenings. The [place] Preventive Services Task Force publishes a list of recommended screenings. Below are screening guidelines for women ages 18 to 39. BLOOD PRESSURE SCREENING Your blood pressure should be checked at least once every 3 to 5 years if: Your blood pressure is in the normal range (top number less than 120 mm Hg and bottom number less than 80 mm Hg) You don't have risk factors for high blood pressure Ask your provider if you need your blood pressure checked more often if: The top number is 120 to 129 mm Hg or the bottom number is 70 to 79 mm Hg You have diabetes, heart disease, kidney problems, are overweight, or have certain other health conditions You have a first-degree relative with high blood pressure You are Black You had high blood pressure during a If the top number is 130 mm Hg or greater or the bottom number is 80 mm Hg or greater, this is considered stage 1 hypertension. Schedule an appointment with your provider to learn how you can reduce your blood pressure. Watch for blood pressure screenings in your area. Ask your provider if you can stop in to have your blood pressure checked. BREAST CANCER SCREENING Experts do not agree about the benefits of breast self-exams in finding breast cancer or saving lives. Talk to your provider about what is best for you. A screening mammogram is not recommended for most women under age 40. Your provider may discuss and recommend mammograms, MRI scans, or ultrasounds if you have an increased risk for breast cancer, such as: A mother or sister who had breast cancer at a young age (most often starting screening earlier than the age the close relative was diagnosed) You carry a high-risk genetic marker CERVICAL CANCER SCREENING Cervical cancer screening should start at age 21 years unless your provider ad vises otherwise. After the first test: Women ages 21 through 29 should have a Pap test every 3 years. Exoprts do not agree on whether HPV testing is recommended for this age group. Women ages 30 through 65 should be screened with either a Pap test every 3 years or the HPV test every 5 years or both tests every 5 years (called cotesting ). Women who have been treated for precancer (cervical dysplasia) should continue to have Pap tests for 20 years after treatment or until age 65, whichever is longer. If you have had your uterus and cervix removed (total hysterectomy), and you have not been diagnosed with cervical cancer or precancer (high grade cervical neoplasia), you do not need cervical cancer screening. CHOLESTEROL SCREENING Cholesterol screening should begin at: Age 45 for women with no known risk factors for coronary heart disease Age 20 for women with known risk factors for coronary heart disease Repeat cholesterol screening should take place: Every 5 years for women with normal cholesterol levels More often if changes occur in lifestyle (including weight gain and diet) More often if you have diabetes, heart disease, kidney problems, or certain other conditions DIABETES SCREENING You should be screened for diabetes starting at age 35 and then repeated every 3 years if you have no risk factors for diabetes. Screening may need to start earlier and be repeated more often if you have other risk factors for diabetes, such as: You have a first degree relative with diabetes. You are overweight or have obesity. You have high blood pressure, prediabetes, or a history of heart disease. Screening for diabetes should be done if you are planning to become and you are overweight and have other risk factors such as high blood pressure. DENTAL EXAM Go to the dentist once or twice every year for an exam and cleaning. Your dentist will evaluate if you need more frequent visits. EYE EXAM Have an eye exam every 5 to 10 years before age 40. If you have vision problems, have an eye exam every 2 years or more often if recommended by your provider. You should have an eye exam that includes an examination of your retina (back of your eye) at least every year if you have diabetes. IMMUNIZATIONS Commonly needed vaccines include: Flu shot: get one every year. COVID-19 vaccine: ask your provider what is best for you. Tetanus-diphtheria and acellular pertussis (Tdap) vaccine: have one at or after age 19 as one of your tetanus-diphtheria vaccines if you did not receive it as an adolescent. Tetanus-diphtheria: have a booster (or Tdap) every 10 years. Varicella vaccine: receive 2 doses if you never had chickenpox or the varicella vaccine. Hepatitis B vaccine: receive 2, 3, or 4 doses, depending on your exact circumstances. Measles, mumps, and rubella (MMR) vaccine: receive 1 to 2 doses if you are not already immune to MMR. Your provider can tell you if you are immune. Ask your provider about the human papillomavirus (HPV) vaccine if: You have not received the HPV vaccine in the past You have not completed the full vaccine series (you should catch up on this shot) Ask your provider if you should receive other immunizations if you have certain health problems that increase your risk for some diseases such as pneumonia. INFECTIOUS DISEASE SCREENING Women who are sexually active should be screened for chlamydia and gonorrhea up until age 25. Women 25 years and older should be screened for chlamydia and gonorrhea if at high risk. Screening for hepatitis C: All adults ages 18 to 79 should get a one-time test for hepatitis C. people should be screened at every . Screening for human immunodeficiency virus (HIV): All people ages 15 to 65 should get a one-time test for HIV. Depending on your lifestyle and medical history, you may also need to be screened for infections such as syphilis and HIV, as well as other infections. PHYSICAL EXAM All adults should visit their provider from time to time, even if they are healt hy. The purpose of these visits is to: Screen for disease Assess your risk of future medical problems Encourage a healthy lifestyle Update your vaccinations and other preventive care services Maintain a relationship with a provider in case of an illness Your height, weight, and BMI should be checked at every exam. During your exam, your provider may ask you about: Depression and anxiety Diet and exercise Alcohol and tobacco use Safety issues, such as using seat belts, smoke detectors, and intimate partner violence Your medicines and risk for interactions SKIN SELF-EXAM Your provider may check your skin for signs of skin cancer, especially if you're at high risk, such as if you: Have had skin cancer before Have close relatives with skin cancer Have a weakened immune system OTHER SCREENING Talk with your provider about colon cancer screening if you have a strong family history of colon cancer or polyps, or if you have had inflammatory bowel disease or polyps yourself. Routine bone density screening of women under 40 is not recommended.
[2024-05-05 10:19] VITALS: BP 122/70; PULSE 53; RESP 13; O2SAT 99; BMI 33.2
== END 2024-05-05 11:00 | disposition home or self-care (01) ==
LOC: HO.HMCFM 10:11
PROVIDERS: PCP Nurse Practitioner Family; Visit Provider Nurse Practitioner Family
DX: Z00.00 Encounter for general adult medical examination without abnormal findings (principal); R42 Dizziness and giddiness; G43.109 Migraine with aura, not intractable, without status migrainosus; F33.1 Major depressive disorder, recurrent, moderate; Z68.33 Body mass index [BMI] 33.0-33.9, adult; E66.811 Obesity, class 1; Z80.3 Family history of malignant neoplasm of breast; Z87.59 Personal history of other complications of pregnancy, childbirth and the puerperium; H53.19 Other subjective visual disturbances; Z97.3 Presence of spectacles and contact lenses

== ENCOUNTER → 2024-05-05 10:11 | Outpatient (BNVA) | payer OTHER, SELFPAY | PROVIDERS: PCP Nurse Practitioner Family; Visit Provider Nurse Practitioner Family | DX: Z00.01 Encounter for general adult medical examination with abnormal findings (principal); E66.811 Obesity, class 1; Z68.33 Body mass index [BMI] 33.0-33.9, adult; G43.109 Migraine with aura, not intractable, without status migrainosus; R42 Dizziness and giddiness; F41.1 Generalized anxiety disorder; F33.1 Major depressive disorder, recurrent, moderate; B00.9 Herpesviral infection, unspecified; Z87.59 Personal history of other complications of pregnancy, childbirth and the puerperium; Z97.3 Presence of spectacles and contact lenses; Z80.3 Family history of malignant neoplasm of breast; Z71.3 Dietary counseling and surveillance | CPT/HCPCS: 90471; 90472; 90656; 90715; 96127; 99202; 99385 ==

== ENCOUNTER 2024-05-10 07:35 | Outpatient (REF) | payer OTHER, SELFPAY ==
[2024-05-10 11:28] LABS: Hematocrit 37.2 % (37.0-47.0); Hemoglobin 12.3 g/dl (12.0-16.0); Mean Corpuscular HGB Conc 33.1 g/dl (31.0-35.0); Mean Corpuscular Volume 84.5 fL (80.0-98.0); Platelet Count 244 X10*3/uL (160-400); Red Cell Distribution Width 12.9 % (11.0-16.0); White Blood Count 3.8 X10*3/uL (4.8-10.8)
[2024-05-10 11:46] LABS: Estimated Average Glucose 103 mg/dL; Hemoglobin A1C 112.1809 umol/L; Hemoglobin A1c % 5.2 % (<6.0); Total Hemoglobin (HGBA1C) 3337.3837 umol/L
[2024-05-10 12:25] LABS: HIV AB/AG Nonreactive (Nonreactive); HIV Num 1 0.05 S/CO (0.00-0.99)
[2024-05-10 12:26] LABS: Alanine Aminotransferase 35 U/L (0-31); Albumin Level 4.3 g/dL (3.5-5.0); Alkaline Phosphatase 68 U/L (39-117); Anion Gap 8 (12-20); Aspartate Amino Transferase 36 U/L (5-31); Bilirubin Total 0.5 mg/dL (0.0-1.0); Blood Urea Nitrogen 10 mg/dL (9-16); Calcium 9.4 mg/dL (8.4-10.2); Carbon Dioxide 24 mmol/L (22-29); Chloride 109 mmol/L (96-108); Cholesterol 198 mg/dL (<200); Estimated Glomerular Filt Rate > 60; Glucose Random 84 mg/dL (60-115); HDL Cholesterol 41 mg/dL (>40); Iron 73 mcg/dL (30-160); LDL Cholesterol Calculated 131 mg/dL (<100); Percent Iron Saturation 22 % (15-50); Potassium 4.2 mmol/L (3.3-5.1); Sodium 137 mmol/L (135-145); Syphilis Screen Nonreactive (Nonreactive); Total Iron Binding Capacity 330 mcg/dL (228-428); Total Protein 7.3 g/dL (6.5-8.0); Triglycerides 134 mg/dL (<150); Unsaturated Iron Binding 257 ug/dL
[2024-05-10 12:32] LABS: TSH reflex Free T4 1.42 uIU/mL (0.32-4.0); Vitamin D 25-OH Total 22.2 ng/mL (>30)
[2024-05-10 12:37] LABS: Folate 6.7 ng/mL (> or = 4.0); Vitamin B12 648 pg/mL (200-900)
[2024-05-10 12:42] LABS: Creatinine Urine 97.38 mg/dL; Microalbumin Urine < 5.0 mg/L
[2024-05-12 08:54] LABS: Herpes Simplex Type 1 IgG >58.00 index; Herpes Simplex Type 2 IgG <0.90 index
== END 2024-05-10 07:36 | disposition home or self-care (01) ==
LOC: HO.WFDLDS 07:35
PROVIDERS: Visit Provider Nurse Practitioner Family
DX: Z00.00 Encounter for general adult medical examination without abnormal findings (principal); Z11.3 Encounter for screening for infections with a predominantly sexual mode of transmission; E66.811 Obesity, class 1; Z68.33 Body mass index [BMI] 33.0-33.9, adult
CPT/HCPCS: 36415; 80053; 80061; 82043; 82306; 82570; 82607; 82746; 83036; 83540; 84443; 85027; 86695; 86696; 86780; 87389

== ENCOUNTER 2024-06-05 13:36 | Outpatient (AMB) | payer OTHER, SELFPAY ==
--- NOTE | 2024-06-05 13:37 | MHC.OFFVIS ---
Vital Signs 06/05/24 13:44 Height 5 ft 2 in Weight 182 lb BMI 33.3 BP 113/70 Blood Pressure Location Rt brachial Position Sitting Pulse 80 Intake Visit Reasons: Family history of malignant neoplasm of breast Intake Note: This patient presents for Family history of malignant neoplasm of breast. Pt c/o; reports no breast complaints at this time. Feller Seam Operator Required: Yes Feller Seam Operator Language: Pan Pusher Services: Feller Seam Operator Present Feller Seam Operator Name: Darlyn Information Interpreted: non-clinical & clinical Accompanied by: Self / Same As Patient Allergies No Known Allergies [No Known Allergies*] Allergy (Verified 06/05/24 13:38) HPI HPI Family history of malignant neoplasm of breast: Details: [age] year old female referred for a family history of breast cancer and uterine cancer. She says her maternal aunt had uterine cancer in her 40s. She says 3 other family members on her father's side had drain cancer.. Her menarche was at age of [age]. Her 1st was the age of 11 but this was not completed she says. She also had a molar .. She had 4 pregnancies including those to. She still has regular periods. [facility] Medical History (Updated 06/05/24 @ 14:08 by Andrey Anaya MD) Family history of uterine cancer No active medical problems Surgical History History of laparoscopic cholecystectomy Tubal ligation status History of 2 sections Family History Mother Mental health disorder Cancer Psychiatric disorder Uterine cancer Maternal Grandmother Mental health disorder Hypertension High cholesterol Psychiatric disorder Paternal Grandmother Asthma High cholesterol Thyroid disorder Cancer Father Alcoholism Social History Household Members: Children Both parents involved: No Caregiver staying overnight: No Housing: Apartment Are you a primary resident care aide to a significant other at home: Yes (kids) Do you presently have visiting nurse or other home services: No 75 years or older and lives alone: No Alcohol intake: never Patient Tobacco Use Status: Never used Tobacco e-Cigarette/Vaping Use: Never Used Second Hand Smoke Exposure: No service: No Current occupational status: employed 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 Cognitive needs: No Hearing needs: No Vision needs: Yes (wear glasses) Female Reproductive History Menstrual Age of Menarche: 9 Total pregnancies: 4 Full term: 2 Review of Systems Const Denies chills and Denies fever(s) Card Denies chest pain, Denies dyspnea and Denies dyspnea on exertion Resp Denies cough, Denies dyspnea and Denies dyspnea on exertion GI Denies hematochezia and Denies change in bowel habits Denies hematuria Musc Denies back pain and Denies limited range of motion Neuro Denies focal weakness and Denies convulsions Psych Denies depression and Denies mood swings Physical Exam Vital Signs: Last Vital Signs Pulse 80 06/05/24 13:44 BP 113/70 06/05/24 13:44 BMI result Body Mass Index 33.3 Const General: comfortable and no acute distress Orientation/consciousness: patient oriented x3 Neck Neck: Yes no lymphadenopathy Chest Other: No palpable breast masses, no axillary lymphadenopathy Resp Auscultation: clear to auscultation bilaterally Cardio Rhythm: regular rhythm GI Palpation (GI): Soft to palpation, nontender and no guarding Neuro General: patient oriented x3 Assessment & Plan Assessment & Plan (1) Family history of uterine cancer: Code(s): Z80.49 - Family history of malignant neoplasm of other genital organs Category: Medical Plan: She describes multiple family members on her father's side with uterine cancer. She also says that her mother had uterine cancer as well. She says that her maternal aunt had breast cancer in her 50s. I will have her arrange for genetic testing and genetic counseling. I explained to her the incisions of this test to herself and her family. I will see her again in the office to discuss the results. Coding Level of Care Code New Pt Level 3 (51498) Diagnoses Family history of uterine cancer Z80.49
[2024-06-05 13:44] VITALS: BP 113/70; PULSE 80; BMI 33.3
== END 2024-06-05 14:17 | disposition home or self-care (01) ==
PROVIDERS: PCP Nurse Practitioner Family; Visit Provider Surgery
DX: Z80.49 Family history of malignant neoplasm of other genital organs (principal)
CPT/HCPCS: 99213

== ENCOUNTER → 2024-06-05 13:36 | Outpatient (BNVA) | payer OTHER, SELFPAY | PROVIDERS: PCP Nurse Practitioner Family; Visit Provider Surgery | DX: Z01.89 Encounter for other specified special examinations (principal); Z80.49 Family history of malignant neoplasm of other genital organs; Z80.3 Family history of malignant neoplasm of breast | CPT/HCPCS: 99212 ==

== ENCOUNTER 2024-08-04 10:20 | Emergency (ER) | payer OTHER, SELFPAY ==
--- NOTE | ~2024-08-04 | XR_ITS ---
EXAMINATION: XR CHEST CLINICAL INFORMATION: prod cough COMPARISON: 07/25/2017. TECHNIQUE: 2 views of the chest were obtained. FINDINGS: The cardiac, hilar, and mediastinal contours are normal. The lungs are clear bilaterally. There is no pneumothorax or pleural effusion. There is no focal osseous or soft tissue abnormality. XR/XR chest 2V IMPRESSION: Normal chest. Electronically signed by: Harry Crump MD 08/04/2024 11:44 AM W[facility]EN
--- NOTE | 2024-08-04 11:02 | ED.URI ---
HPI - URI/Sore Throat General Chief Complaint: Upper Respiratory Symptoms Stated Complaint: Fever, sore throat, body pain Time Seen by Provider: 08/04/24 13:17 Source: patient, RN notes reviewed and old records reviewed Mode of arrival: ambulatory History of Present Illness ED Provider: Amber Martinez PA-C HPI Narrative: 33-year-old female with a past medical history of anxiety, presenting to the ED complaining of subjective fever, chills, sore throat, productive cough, SOB, chest pain when coughing x2 days. + sick contacts at home. Denies recent travel, abdominal pain, nausea/vomiting Related Data Previous Rx's ?Medication ?Instructions ?Recorded valacyclovir 500 mg tablet 500 mg PO BID PRN herpes outbreak 05/05/24 #30 tabs cholecalciferol (vitamin D3) 50 50 mcg PO DAILY #90 caps 05/15/24 mcg (2,000 unit) capsule acetaminophen 500 mg tablet 500 mg PO Q6H PRN fever or pain 08/04/24 (Tylenol Extra Strength) #14 tabs benzonatate 100 mg capsule 100 mg PO TID PRN cough #14 caps 08/04/24 ibuprofen 400 mg tablet 400 mg PO Q6H PRN fever or pain 08/04/24 #14 tabs Allergies Allergy/AdvReac Type Severity Reaction Status Date / Time No Known Allergies Allergy Verified 08/04/24 11:04 [No Known Allergies*] Review of Systems Review of Systems: Yes all other systems are reviewed and are negative Constitutional: Constitutional: Reports as per [facility] Past Medical History Attestation statement: The following information was validated with the patient. Source: old records reviewed Medical History Family history of uterine cancer No active medical problems Surgical History History of laparoscopic cholecystectomy Tubal ligation status History of 2 sections Family History Family History Mother Mental health disorder Cancer Psychiatric disorder Uterine cancer Maternal Grandmother Mental health disorder Hypertension High cholesterol Psychiatric disorder Paternal Grandmother Asthma High cholesterol Thyroid disorder Cancer Father Alcoholism Social History Social History Household Members: Children Housing: Apartment Are you a primary care information associate to a significant other at home: Yes (kids) Do you presently have visiting nurse or other home services: No Alcohol intake: never Patient Tobacco Use Status: Never used Tobacco e-Cigarette/Vaping Use: Never Used Second Hand Smoke Exposure: No Advance Directives: No Advance Directives Information Provided: No service: No Current occupational status: employed 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 Cognitive needs: No Hearing needs: No Vision needs: Yes (wear glasses) Physical Exam Vital Signs: Vital Signs: Last Vital Signs Temp 99 F 08/04/24 13:31 Pulse 116 H 08/04/24 13:31 Resp 18 08/04/24 13:31 BP 126/84 08/04/24 11:03 Pulse Ox 99 08/04/24 13:31 O2 Del Method Room Air 08/04/24 13:31 BMI result Body Mass Index 34.0 Const: General: cooperative, healthy appearing and no acute distress Orientation/consciousness: patient oriented x3 Limitations: no limitations HEENT: Head: Yes normal to inspection and Yes atraumatic Ears: hearing grossly normal bilaterally General nose exam: Normal external nose present Face and sinus: Yes normal facial exam Mouth: Normal oral and palatal mucosa present and no drooling Throat: Yes tonsils normal, Yes uvula midline, No peritonsillar mass, Yes posterior oropharynx abnormal (Mild erythema), No uvula laterally displaced and No uvular edema Eyes: General: appearance normal, both eyes and all related structures EOM: EOMs intact bilaterally Neck: Neck: Yes normal visual inspection and Yes no meningeal signs Resp: Effort & Inspection: normal respiratory effort, no respiratory distress and no stridor Auscultation: clear to auscultation bilaterally, no crackles and no wheezes Cardio: Rate: regular rate Heart sounds: S1 normal heart sound present and S2 normal heart sound present Skin: Rashes: no rashes Wounds: no wounds Neuro: General: patient oriented x3, tone normal and no meningeal signs Cranial nerves: Yes CN's II-XII intact bilaterally Gait exam (Neuro): Normal gait present Extrem: General: Yes normal to inspection Course Course Course Narrative: This is a Rapid Medical Exam performed in triage by Amber Martinez PA-C. Full HPI, ROS and PE to be performed by primary ED provider. 33 yo F w/pmhx anxiety presenting to the ED c/o fever, chills, sore throat, prod cough, SOB, CP when coughing x2 days. denies taking any meds today PE: +congested, lungs CTA, +posterior oropharyngeal erythema, uvula midline, unable to get great view in triage Plan: viral testing, rapid strep, CXR XR chest 2V IMPRESSION: Normal chest. -influenza a positive. Rapid strep negative Results discussed with patient including worrisome signs and symptoms and strict return precautions, and when to return to the emergency department. They verbalized understanding and feel safe for discharge at this time. Medications Administered Discontinued Medications Generic Name Dose Route Start Last Admin Trade Name Freq PRN Reason Stop Dose Admin Ibuprofen 600 mg 08/04/24 13:25 08/04/24 13:29 Ibuprofen 600 Mg Tablet PO 08/04/24 13:26 600 mg ONCE ONE Administration Medical Decision Making Medical Decision Making [facility] Narrative: 33-year-old female with a past medical history of anxiety, presenting to the ED complaining of subjective fever, chills, sore throat, productive cough, SOB, chest pain when coughing x2 days. On exam mildly tachycardic likely from persistent cough on exam, NAD, nontoxic appearing, lungs CTA, mild posterior oropharyngeal erythema noted. Uvula midline. No respiratory distress. Concern for viral illness. Rule out pneumonia/bronchitis. Lower suspicion for ACS/PE. No evidence of SCUBA DIVER/retropharyngeal abscess Plan: Viral testing, rapid strep, CXR Please refer to course for remaining clinical decision making, interpretation of labs/imaging results, and discussions with consultants and/or family members. Differential Diagnosis Differential Diagnoses: The differential diagnosis associated with the presentation includes As above Lab Data [facility] Lab Attestation statement: I reviewed the patient's lab results. Labs: Lab Results 08/04/24 08/04/24 Range/Units 11:31 11:33 Influenza Type A (PCR) POSITIVE A (Negative) Influenza Type B (PCR) NEGATIVE (Negative) RSV RNA Qual (PCR) NEGATIVE (Negative) SARS-CoV-2 RNA (RT-PCR) NEGATIVE (Negative) S. pyogenes GrpA GILMA Negative (Negative) Independent Interpretation I performed an independent interpretation of an: Plain X-Ray Radiology Impression Discussion of test interpretation with radiology: I have reviewed the radiologist's reading. External Record Review External record reviewed: Inpatient record, Office record, Outpatient record, Prior outpatient labs, Prior outpatient radiology, Primary care record and Outside ED record Tests considered The following testing was considered but not selected: As above Prescription Management I considered prescription management with: Pain Medication, Antiviral, Antibiotic and Other Social Determinants Patient?s care significantly limited by Social Determinants of Health including: Other Social Determinant of Health Discharge Plan Discharge Clinical Impression: Influenza A Patient Disposition: Home, Self-Care Instructions: Influenza (DC) Additional Instructions: You have the flu No antibiotics are indicated at this time Make sure you are staying hydrated. Drink plenty of fluids. Rest Alternate Tylenol and Motrin at home as needed for body aches and fever Tessalon Perles are for cough take as needed Follow-up with your doctor. If symptoms persist or worsen return to the emergency department *If you are a child & not tolerating liquid or urinating for more than 6 hours, or fevers are uncontrolled with medications at home, return to the emergency department* Prescriptions: New ibuprofen 400 mg tablet 400 mg PO Q6H PRN (Reason: fever or pain) Qty: 14 0RF acetaminophen [Tylenol Extra Strength] 500 mg tablet 500 mg PO Q6H PRN (Reason: fever or pain) Qty: 14 0RF benzonatate 100 mg capsule 100 mg PO TID PRN (Reason: cough) Qty: 14 0RF No Action cholecalciferol (vitamin D3) 50 mcg (2,000 unit) capsule 50 mcg PO DAILY Qty: 90 2RF valacyclovir 500 mg tablet 500 mg PO BID PRN (Reason: herpes outbreak) Qty: 30 2RF Referrals: Mariela Grover, OUTSIDE SALES ASSOCIATE-BC [Primary Care Provider] - Stand Alone Forms: Work/School Release Discharge Date/Time: 08/04/24 13:32 Print Language: Latvian
[2024-08-04 11:03] VITALS: BP 126/84; PULSE 114; RESP 18; TEMP 36.8; O2SAT 100; BMI 34.0
[2024-08-04 11:56] LABS: IDNOW Serial# 08D9AD1C
[2024-08-04 11:57] LABS: Strep A Nucleic Acid Negative (Negative)
[2024-08-04 12:18] LABS: Influenza A PCR POSITIVE (Negative); Influenza B PCR NEGATIVE (Negative); Resp Syncy Virus RNA Qual PCR NEGATIVE (Negative); SARS COV2 PCR INHOUSE NEGATIVE (Negative)
[2024-08-04] MEDS: Ibuprofen 600 MG TABLET PO (13:29)
--- NOTE | 2024-08-04 13:30 | PC.NURSE ---
PT WAS SEEN AND DISCHARGED BY TRIAGE PROVIDER
[2024-08-04 13:31] VITALS: PULSE 116; RESP 18; TEMP 37.2; O2SAT 99
--- OUTSIDE RECORDS SUMMARY | 2024-08-04 13:38 | XMS_ITS | Clinical Summary ---
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 Name Role Phone Jelly Rinaldi MD Primary Care Provider + Immunizations Name Administration Dates Next Due Influenza injectable quadrivalent preservative f ree 08/07/2021 Pfizer Covid-19 Vaccine 1209/16/2023 Tdap 08/07/2021 Social History Tobacco Use Types Packs/Day Years Used Date Smoking Tobacco: Never Assessed Comments Unknown Sex and Gender Information Value Date Recorded Sex Assigned at Female 05/04/2022 10:35 AM EDT Legal Sex Female 10:35 AM EDT Gender Identity Female 05/04/2022 10:35 AM EDT Sexual Orientation Straight 05/04/2022 10 :35 AM EDT Last Filed Vital Signs Vital Sign Reading Time Taken Comments Blood Pressure 114/70 08/07/2021 12:02 AM EST Pulse 78 08/07/2021 12:02 AM EST Temperature - - Respiratory Rate - - Oxygen Saturation - - Inhaled Oxygen Concentration - - Weight 81.5 kg (179 lb 9.6 oz) 08/07/2021 12:02 AM EST Height 162.6 cm (5' 4 ) 08/07/2021 12:02 AM EST Body Mass Index 30.83 08/07/2021 12:02 AM EST Plan of Treatment Health Maintenance Due Date Last Done Comments Depression Screening 1989 HIV Screening 1989 SDOH Screening 1989 Alcohol/Substance Use Screening 2001 Tobacco Screening 2001 Family Planning (PISQ) 2004 Hepatitis C Screening 12/18/2007 Hepatitis B Vaccines (1 of 3 - 19+ 3-dose series) 2008 Pap Smear 2010 Cervical Cancer Screening 09/07/2023 HPV/Cotest 09/07/2023 09/06/2018 COVID-19 Vaccine (4 - 2023-2 5 season) 2024 09/16/2023, 12/04/2020, 11/06/2020 Influenza Vaccine (#1) 2024 08/07/2021 DTaP/Tdap/Td Vaccines (2 - T d or Tdap) 08/07/2031 08/07/2021 Zoster Vaccines (1 of 2) 12/18/2039 RSV Patients and Patients Aged 60 years or older (1 - 1-dose 75+ series) 2064 HIB Vaccines Aged Out No longer eligi ble based on patient's age to complete this topic HPV Vaccines Aged Out No longer eligi ble based on patient's age to complete this topic Hepatitis A Vaccines Aged Out No long er eligible based on patient's age to complete this topic IPV Vaccines Aged Out No longer eligi ble based on patient's age to complete this topic Meningococcal Vaccine Aged Out No coco verna eligible based on patient's age to complete this topic Pneumococcal Vaccine: Pediatrics (0 to 5 Years) and At-Risk Patients (6 to 49) Years) Aged Out No longer eligible b ased on patient's age to complete this topic RSV under 20 months Aged Out No longe r eligible based on patient's age to complete this topic Rotavirus Vaccines Aged Out No longer eligible based on patient's age to complete this topic Procedures Procedure Name Priority Date/Time Associated Diagnosis Comments JANINA HISTORICAL HPV MRNA E6/E7 Routine 09/06/2018 10:40 AM EST from Last 3 Months or Most Recently Relevant to Health Maintenance Results * HPV mRNA E6/E7 (09/06/2018 10:40 AM EST) HPV mRNA E6/E7 Not Detected NOT DETECTED [facility] Comment: This test was performed using the APTIMA(R) HPV Assay ([employer] This assay detects E6/E7 viral messenger RNA (mRNA) from 14 high-risk HPV types (16,18,31,33,35,39,45,51, 52,56,58,59,66,68). For additional information please refer to: http://education.[employer]/faq/TXN038r1 (This link is being provided for informational/ educational purposes only.) The analytical performance characteristics of this assay have been determined by [employer] [place], [place]. The modifications have not been cleared or approved by the FDA. This assay has been validated pursuant to the CLIA regulations and is used for clinical purposes. Test Performed by [facility], [facility], [address] [place] [address] Tomy Mccabe M.D., Ph.D., Director of Laboratories , CLIA [id number] Please note: ??Effective 03/16/2016, HPV testing will be performed using [employer]'s APTIMA test which targets mRNA. Detecting mRNA instead of DNA, as in older methods, offers significant improvements in specificity. 09/06/2018 10:4 0 AM EST us Jelly Rinaldi MD HISTORICAL/NON ORDERABLE LABS Final Result [facility] Anywhere [address] from Last 3 Months or Most Recently Relevant to Health Maintenance Insurance [address] [address] [facility] , [address] [place] [address] [place] [id number] [place] [id number] Care Teams Honey Processor Relationship Specialty Start Date End Date Jelly Rinaldi MD [address] [place] [id number] PCP - General Family Medicine 08/12/18
== END 2024-08-04 13:32 | disposition home or self-care (01) ==
LOC: HO.ED 13:28
PROVIDERS: Physician Assistant; Emergency Provider Emergency Medicine; PCP Nurse Practitioner Family
DX: J10.1 Influenza due to other identified influenza virus with other respiratory manifestations (principal); R50.9 Fever, unspecified; M79.10 Myalgia, unspecified site; R05.9 Cough, unspecified; R06.02 Shortness of breath; R07.89 Other chest pain; Z03.818 Encounter for observation for suspected exposure to other biological agents ruled out
CPT/HCPCS: 0241U; 71046; 87651; 99283

== ENCOUNTER → 2024-08-04 11:11 | Outpatient (BNV) | payer OTHER, SELFPAY | PROVIDERS: PCP Nurse Practitioner Family; Visit Provider Radiology Diagnostic Radiology | DX: R05.8 Other specified cough (principal) | CPT/HCPCS: 71046 ==